=== PATIENT | male | born 1950 | race Caucasian/White ===

== ENCOUNTER 2020-01-31 08:01 | Outpatient (REF) | payer MEDICARE, SELFPAY | END 2020-01-31 08:02 | disposition home or self-care (01) | LOC: HO.LAB 08:01 | PROVIDERS: Visit Provider Internal Medicine | DX: Z20.828 Contact with and (suspected) exposure to other viral communicable diseases (principal) | CPT/HCPCS: C9803; U0003 ==

== ENCOUNTER 2021-02-22 06:15 | Outpatient (REF) | payer MEDICARE, SELFPAY ==
[2021-02-22 06:29] LABS: MANUAL DIFF FLAG NO
[2021-02-22 06:40] LABS: Basophils Percent Auto 0.6 % (0-2); Eosinophils Absolute Auto 0.1 X10*3/uL (0.0-0.4); Eosinophils Percent Auto 1.2 % (0-4); Hemoglobin 15.6 g/dl (14.0-18.0); Imm Gran Abs Auto 0.01 X10*3/uL (0.00-0.03); Imm Gran Pct Auto 0.2 % (0.0-0.4); Lymphocytes Absolute Auto 1.2 X10*3/uL (1.2-4.9); Lymphocytes Percent Auto 23.8 % (20-40); Mean Corpuscular HGB Conc 33.2 g/dl (31.0-36.0); Mean Corpuscular Hemoglobin 30.4 pg (27.0-33.0); Mean Corpuscular Volume 91.4 fL (80.0-98.0); Mean Platelet Volume 11.4 fL (9.4-12.4); Monocytes Absolute Auto 0.5 X10*3/uL (0.1-1.2); Neutrophils Absolute Auto 3.3 x10*3/uL (2.0-8.3); Neutrophils Percent Auto 65.2 % (45-73); Platelet Count 154 X10*3/uL (160-400); Red Blood Count 5.14 X10*6/uL (4.60-5.80); Red Cell Distribution Width 12.9 % (11.0-16.0)
[2021-02-22 06:57] LABS: Alanine Aminotransferase 30 U/L (0-40); Albumin Level 4.4 g/dL (3.5-5.0); Alkaline Phosphatase 77 U/L (39-117); Anion Gap 12 (12-20); Aspartate Amino Transferase 22 U/L (5-37); Bilirubin Total 0.9 mg/dL (0.0-1.0); Blood Urea Nitrogen 18 mg/dL (9-16); Calcium 10.4 mg/dL (8.4-10.2); Carbon Dioxide 29 mmol/L (22-29); Chloride 101 mmol/L (96-108); Cholesterol 179 mg/dL; Estimated Glomerular Filt Rate > 60; Glucose Fasting 145 mg/dL (60-99); HDL Cholesterol 33 mg/dL; LDL Cholesterol Calculated 96 mg/dl; Potassium 3.9 mmol/L (3.3-5.1); Sodium 138 mmol/L (135-145); Total Protein 7.3 g/dL (6.5-8.0); Triglycerides 253 mg/dL
[2021-02-22 07:36] LABS: Prostate Specific Antigen 4.75 ng/mL (<0.05-4.0)
== END 2021-02-22 06:16 | disposition home or self-care (01) ==
LOC: HO.LAB 06:15
PROVIDERS: Nurse Practitioner Family; Visit Provider Internal Medicine
DX: Z00.00 Encounter for general adult medical examination without abnormal findings (principal); Z12.5 Encounter for screening for malignant neoplasm of prostate; E11.9 Type 2 diabetes mellitus without complications
CPT/HCPCS: 36415; 80053; 80061; 84153; 85025

== ENCOUNTER 2021-07-26 06:06 | Outpatient (REF) | payer MEDICARE, SELFPAY ==
[2021-07-26 07:44] LABS: Estimated Average Glucose 117 mg/dL; Hemoglobin A1c % 5.7 %
[2021-07-26 07:57] LABS: Cholesterol 192 mg/dL; Glucose Fasting 131 mg/dL (60-99); HDL Cholesterol 36 mg/dL; LDL Cholesterol Calculated 129 mg/dl; Triglycerides 139 mg/dL
[2021-07-26 08:20] LABS: Prostate Specific Antigen Scr 5.84 ng/mL (<0.05-4.0)
== END 2021-07-26 06:07 | disposition home or self-care (01) ==
LOC: HO.LAB 06:06
PROVIDERS: PCP Internal Medicine; Visit Provider Internal Medicine
DX: Z00.00 Encounter for general adult medical examination without abnormal findings (principal); Z12.5 Encounter for screening for malignant neoplasm of prostate; E11.65 Type 2 diabetes mellitus with hyperglycemia
CPT/HCPCS: 36415; 80061; 82947; 83036; 84153

== ENCOUNTER → 2021-11-28 11:35 | Outpatient (BNVA) | payer MEDICARE, SELFPAY | PROVIDERS: PCP Internal Medicine; Visit Provider Urology | DX: R97.20 Elevated prostate specific antigen [PSA] (principal); R35.0 Frequency of micturition | CPT/HCPCS: Q3014 ==

== ENCOUNTER 2022-03-17 06:53 | Outpatient (REF) | payer MEDICARE, SELFPAY ==
[2022-03-17 07:12] LABS: MANUAL DIFF FLAG NO
[2022-03-17 08:27] LABS: Basophils Percent Auto 0.4 % (0-2); Eosinophils Absolute Auto 0.1 X10*3/uL (0.0-0.4); Eosinophils Percent Auto 2.2 % (0-4); Hematocrit 44.9 % (42.0-52.0); Hemoglobin 15.2 g/dl (14.0-18.0); Imm Gran Abs Auto 0.03 X10*3/uL (0.00-0.03); Imm Gran Pct Auto 0.5 % (0.0-0.4); Lymphocytes Absolute Auto 1.2 X10*3/uL (1.2-4.9); Mean Corpuscular HGB Conc 33.9 g/dl (31.0-36.0); Mean Corpuscular Hemoglobin 31.5 pg (27.0-33.0); Mean Corpuscular Volume 93.2 fL (80.0-98.0); Mean Platelet Volume 11.7 fL (9.4-12.4); Monocytes Absolute Auto 0.6 X10*3/uL (0.1-1.2); Neutrophils Absolute Auto 3.6 x10*3/uL (2.0-8.3); Neutrophils Percent Auto 64.9 % (45-73); Platelet Count 157 X10*3/uL (160-400); Red Blood Count 4.82 X10*6/uL (4.60-5.80); Red Cell Distribution Width 13.3 % (11.0-16.0); White Blood Count 5.5 X10*3/uL (4.8-10.8)
[2022-03-17 08:53] LABS: Alanine Aminotransferase 26 U/L (0-40); Albumin Level 4.3 g/dL (3.5-5.0); Alkaline Phosphatase 73 U/L (39-117); Anion Gap 13 (12-20); Aspartate Amino Transferase 15 U/L (5-37); Bilirubin Total 0.9 mg/dL (0.0-1.0); Blood Urea Nitrogen 22 mg/dL (9-16); Carbon Dioxide 28 mmol/L (22-29); Chloride 102 mmol/L (96-108); Cholesterol 186 mg/dL; Estimated Glomerular Filt Rate > 60; Glucose Fasting 137 mg/dL (60-99); HDL Cholesterol 32 mg/dL; LDL Cholesterol Calculated 111 mg/dl; Potassium 4.1 mmol/L (3.3-5.1); Sodium 139 mmol/L (135-145); Total Protein 6.9 g/dL (6.5-8.0); Triglycerides 217 mg/dL
[2022-03-17 08:56] LABS: PSA,Total (Free>4and<10) 2.96 ng/mL (0.00-4.00); Thyroid Stimulating Hormone 2.18 uIU/mL (0.32-4.0)
== END 2022-03-17 06:54 | disposition home or self-care (01) ==
LOC: HO.LAB 06:53
PROVIDERS: Absent Provider Urology; PCP Internal Medicine; Visit Provider Internal Medicine
DX: Z12.5 Encounter for screening for malignant neoplasm of prostate (principal); Z13.0 Encounter for screening for diseases of the blood and blood-forming organs and certain disorders involving the immune mechanism; R97.20 Elevated prostate specific antigen [PSA]; I10 Essential (primary) hypertension; E78.5 Hyperlipidemia, unspecified; E03.9 Hypothyroidism, unspecified
CPT/HCPCS: 36415; 80053; 80061; 84153; 84443; 85025

== ENCOUNTER → 2022-03-26 08:46 | Outpatient (BNVA) | payer MEDICARE, SELFPAY | PROVIDERS: PCP Internal Medicine; Visit Provider Urology | DX: R97.20 Elevated prostate specific antigen [PSA] (principal); R35.0 Frequency of micturition; R39.12 Poor urinary stream | CPT/HCPCS: Q3014 ==

== ENCOUNTER 2022-09-15 08:07 | Outpatient (REF) | payer MEDICARE, SELFPAY ==
[2022-09-15 10:01] LABS: PSA,Total (Free>4and<10) 2.49 ng/mL (0.00-4.00)
== END 2022-09-15 08:08 | disposition home or self-care (01) ==
LOC: HO.LAB 08:07
PROVIDERS: PCP Internal Medicine; Visit Provider Urology
DX: Z12.5 Encounter for screening for malignant neoplasm of prostate (principal); R97.20 Elevated prostate specific antigen [PSA]
CPT/HCPCS: 36415; 84153

== ENCOUNTER 2022-09-23 11:46 | Outpatient (AMB) | payer MEDICARE, SELFPAY ==
--- NOTE | 2022-09-23 11:48 | MHC.OFFVIS ---
Intake Intake Visit Reasons: 6M PSA(set) Intake Note: Patient is present for Follow Up PSA/PVR Urology Med: Doxazosin, Finasteride Antibiotic Allergy: None Blood Thinner: None PVR: 28ml Allergies No Known Allergies Allergy (Verified 09/23/22 11:48) HPI HPI Comments History of Present Illness Details Marc is a pleasant male. He is a patient of Dr. Tristan. He seen for the following urologic conditions - elevated PSA - lower urinary tract symptoms Good response to finasteride PSA remains low Discussed current management of his who has progressive dementia with recent fall and prolonged hospital stay Regaining muscle mass is of utmost importance. She should be reviewed for osteoporosis. Elevated PSA Slowly rising PSA PSA - 06/20 4.8, 07/21 5.9, 03/24 2.9, 09/21 2.5 Current symptoms with mild weakness of stream, feeling of relatively good emptying SHEILA 2+ Continue finasteride PFSH Medical History Hypertension Screening for diabetes mellitus Screening for hyperlipidemia Screening for prostate cancer Skin lesion Surgical History History of colonoscopy History of left knee surgery History of right knee surgery Family History Father Stroke Mother Breast cancer Social History Housing: House Alcohol intake: current Alcohol intake frequency: a few times a month Alcohol type: beer Patient Tobacco Use Status: Never used Tobacco e-Cigarette/Vaping Use: Never Used Second Hand Smoke Exposure: No service: No Current occupational status: retired Cognitive needs: No Hearing needs: No Vision needs: No Review of Systems Const Denies chills and Denies fever(s) Card Reports no additional complaints and Denies syncope Resp Denies cough GI Denies abdominal pain and Denies heartburn Reports as per HPI and Denies change in libido Neuro Denies syncope Psych Denies change in libido Endo Denies change in libido Physical Exam Const General: cooperative, healthy appearing, comfortable and no acute distress Orientation/consciousness: patient oriented x3 HEENT Face and sinus: Yes normal facial exam Mouth: moist mucous membranes Neck Neck: Yes normal visual inspection, Yes full ROM and Yes trachea midline Chest Chest palpation & inspection: normal inspection of the chest Resp Effort & Inspection: normal respiratory effort, able to speak in complete sentences and no respiratory distress GI Inspection: Yes normal to inspection Back/Spine/Pelvis Cervical Spine: normal cervical lordosis Thoracic/Lumbar Spine: thoracic and lumbar spine normal to inspection Skin General skin exam: no rashes or lesions noted Neuro General: patient oriented x3, gait normal, tone normal and moves all extremities Extrem General: Yes normal to inspection and Yes capillary refill normal Office Procedures Post Void Residual Post Residual Void Post Void Residual (PVR): 28 43633-Nrua Void Residual by ultrasound Results AMB Urinalysis, Automated UA Leukoctes 0 Ritesh/uL Last Edit by LAXMI Blank on 09/23/22 11:53 UA Nitrite Negative Last Edit by Mesha Calderon A on 09/23/22 11:53 UA Urobilinogen 1 mg/dL Last Edit by Mesha Calderon A on 09/23/22 11:53 UA Protein 0 mg/dL Last Edit by Mesha Calderon [facility] on 09/23/22 11:53 UA pH 6.5 Last Edit by Mesha Calderon [facility] on 09/23/22 11:53 UA Blood 0 Dwight/uL Last Edit by Mesha Calderon [facility] on 09/23/22 11:53 UA Specific [place] 1.015 Last Edit by Mesha Calderon A on 09/23/22 11:53 UA Ketone Negative Last Edit by Mesha Calderon [facility] on 09/23/22 11:53 UA Bilirubin 0 mg/dL Last Edit by Mesha Calderon A on 09/23/22 11:53 UA Glucose 0 mg/dL Last Edit by Mesha Calderon [facility] on 09/23/22 11:53 Results Reviewed Results Reviewed: Laboratory Last Values Urine pH (Auto) 6.5 09/23/22 11:49 Specific [place] (Auto) 1.015 09/23/22 11:49 Urine Protein (Auto) 0 mg/dL 09/23/22 11:49 Glucose (UA)(Auto) 0 mg/dL 09/23/22 11:49 Urine Ketones (Auto) Negative 09/23/22 11:49 Urine Blood (Auto) 0 Dwight/uL 09/23/22 11:49 Urine Nitrite (Auto) Negative 09/23/22 11:49 Urine Bilirubin (Auto) 0 mg/dL 09/23/22 11:49 Urine Urobilinogen (Auto) 1 mg/dL 09/23/22 11:49 Leukocyte Esterase (Auto) 0 Ritesh/uL 09/23/22 11:49 Assessment & Plan Assessment & Plan (1) Urinary frequency: Code(s): R35.0 - Frequency of micturition (2) Elevated PSA: Code(s): R97.20 - Elevated prostate specific antigen [PSA] Plan Twelve month follow-up Orders: Orders Prostate Specific Antigen 364 Days N40.0 - Benign prostatic hyperplasia without lower urinary tract symptoms AMB Urinalysis Automated Today Z13.9 - Encounter for screening, unspecified AMB Post Void Residual by ultrasound Today N40.0 - Benign prostatic hyperplasia without lower urinary tract symptoms Patient Instructions: Imaging studies, laboratory and physical exam results were discussed and reviewed in detail. No major barriers to patient understanding were identified. An opportunity to ask questions regarding the treatment plan was provided. All questions were answered. The patient expressed understanding and agreement with the above treatment plan. The patient is aware they should contact our office by phone for worsening of their current condition or the appearance of new urologic symptoms. Compliance is encouraged with any medications and followup testing that is ordered. It is a privilege to participate in the urologic care of your patient. If you have any questions or concerns regarding treatment for the above conditions, or other urologic issues, please do not hesitate to contact me. The office telephone contact is [phone]. This note is constructed using voice recognition software. While every effort has been made to ensure accuracy cut off machine operator errors may have been included. Yours sincerely, Dr Dinh Birmingham MD, [facility] - Urology Providers of Expert, Compassionate Care for the Genitourinary System Coding Level of Care Code Est Pt Level 3 (22727) Diagnoses Urinary frequency R35.0 Elevated PSA R97.20 CPT Codes Post Residual Void - PVR CPT Code: 64465-Fryo Void Residual by ultrasound ([id number])
== END 2022-09-23 12:34 | disposition home or self-care (01) ==
PROVIDERS: Visit Provider Urology
DX: R35.0 Frequency of micturition (principal); R97.20 Elevated prostate specific antigen [PSA]
CPT/HCPCS: 99213

== ENCOUNTER → 2022-09-23 11:46 | Outpatient (BNVA) | payer MEDICARE, SELFPAY | PROVIDERS: Visit Provider Urology | DX: N40.1 Benign prostatic hyperplasia with lower urinary tract symptoms (principal); N13.8 Other obstructive and reflux uropathy; R97.20 Elevated prostate specific antigen [PSA]; R39.12 Poor urinary stream; R35.0 Frequency of micturition; Z79.899 Other long term (current) drug therapy | CPT/HCPCS: 51798; 99212 ==

== ENCOUNTER 2022-11-14 11:18 | Outpatient (AMB) | payer MEDICARE, SELFPAY ==
[2022-11-14 11:20] VITALS: BP 116/54; PULSE 64; O2SAT 97; BMI 27.5
--- NOTE | 2022-11-14 11:20 | MHC.PC.OV ---
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 Accompanied by: Self / Same As Patient Allergies No Known Allergies Allergy (Verified 11/14/22 11:21) Medication List - Last Reconciled 11/14/22 by Jak Aranda MD atenolol 100 mg PO DAILY clotrimazole-betamethasone 1-0.05 % 1 appl topical BID 2 weeks doxazosin 4 mg PO BEDTIME 90 days finasteride 5 mg PO DAILY 90 days fluoxetine 20 mg PO QAM triamterene-hydrochlorothiazid 75-50 mg 1 tab PO DAILY Tobacco use date assessed: 04/04/22 Fall risk assessment: No Falls in past year Last assessed Fall Risk: 11/14/22 Dental Screening Dental Screen Date: 11/14/22 Did you have a dental visit in the last 12 months?: No Did you have a dental problem in the last 6 months where you did not have access to dental care?: No Was dental information given to patient?: Patient has dentist HPI 3M Follow up HPI Details HTN BPH and depression on rx; doing well and compliant [facility] Medical History Screening for prostate cancer Screening for hyperlipidemia Screening for diabetes mellitus Skin lesion Hypertension Surgical History History of colonoscopy History of right knee surgery History of left knee surgery Family History Father Stroke Mother Breast cancer Social History Housing: House Alcohol intake: current Alcohol intake frequency: a few times a month Alcohol type: beer Patient Tobacco Use Status: Never used Tobacco e-Cigarette/Vaping Use: Never Used Second Hand Smoke Exposure: No service: No Current occupational status: retired Cognitive needs: No Hearing needs: No Vision needs: No Questionnaire PHQ-9 Over the last 2 weeks, how often have you been bothered by any of the following problems? 1. Little interest or pleasure in doing things: not at all 2. Feeling down, depressed, or hopeless: not at all 3. Trouble falling or staying asleep, or sleeping too much: not at all 4. Feeling tired or having little energy: not at all 5. Poor appetite or overeating: not at all 6. Feeling bad about yourself - or that you are a failure or have let yourself or your family down: not at all 7. Trouble concentrating on things, such as reading the newspaper or watching television: not at all 8. Moving or speaking so slowly that other people could have noticed. Or the opposite - being so fidgety or restless that you have been moving around a lot more than usual: not at all 9. Thoughts that you would be better off or of hurting yourself in some way: not at all Total score: 0 Depression Screening Interpretation: Negative Source: Developed by Drs. Gordo Anedrson, Rosalinda Castellanos, Omar Pitt and colleagues, with an educational danny from [employer]. Thrive Questionnaire Date Thrive assessed: 04/04/22 AUDIT C Alcohol Use Questionnaire (AUDIT-C) 1. How often do you have a drink containing alcohol?: 2-4 times a month 2. How many drinks containing alcohol do you have on a typical day when you are drinking?: 1 or 2 Total Score: 2 Score Reviewed/Action Taken: Yes DEEDEE-7 AMB Questionnaire DEEDEE-7 Date DEEDEE - 7 assessed: 04/04/22 Source: Developed by Drs. Gordo Anderson, Rosalinda Castellanos, Omar Pitt and colleagues, with an educational danny from [employer]. Review of Systems Const Denies chills, Denies headache(s) and Denies weight loss ENT Denies headache(s) Card Denies chest pain, Denies syncope, Denies irregular heart rhythm and Denies dyspnea Resp Denies chest congestion, Denies cough and Denies dyspnea GI Denies abdominal pain, Denies change in stool character, Denies nausea and Denies vomiting Musc Denies deformity and Denies joint swelling Neuro Denies syncope and Denies headache(s) Physical exam (Primary Care) Vital Signs: Last Vital Signs Pulse 64 11/14/22 11:20 BP 116/54 L 11/14/22 11:20 Pulse Ox 97 11/14/22 11:20 Oxygen Delivery Method Room Air 11/14/22 11:20 BMI result Body Mass Index 27.5 Tobacco/Smoking Status: Tobacco use Status Tobacco use date assessed 04/04/22 11/14/22 11:25 Patient Tobacco Use Status Never used Tobacco 11/14/22 11:25 e-Cigarette/Vaping Use Never Used 11/14/22 11:25 PHQ-9: PHQ-9 Score PHQ-9: Total score 0 11/14/22 11:25 Depression Screening Interpretation: Negative Thrive Assessment: Date of Thrive Assessment Date Thrive assessed 04/04/22 11/14/22 11:25 Const General: cooperative, comfortable, no acute distress and alert Neck Neck: Yes no lymphadenopathy Thyroid: Thyroid normal Resp Effort & Inspection: normal respiratory effort Auscultation: clear to auscultation bilaterally Percussion: percussion normal Cardio Jugular venous distension: no JVD Palpation: normal PMI Rate: regular rate Rhythm: regular rhythm Heart sounds: S1 normal heart sound present and S2 normal heart sound present GI Inspection: Yes normal to inspection Palpation (GI): No hepatosplenomegaly present Skin General skin exam: no rashes or lesions noted Extrem General: Yes no clubbing, cyanosis or edema Assessment and Plan Assessment & Plan (1) Hypertension: Code(s): I10 - Essential (primary) hypertension Plan: stable; same rx (2) Anxiety: Code(s): F41.9 - Anxiety disorder, unspecified Plan: stable; same rx (3) BPH (benign prostatic hyperplasia): Code(s): N40.0 - Benign prostatic hyperplasia without lower urinary tract symptoms Plan: stable; same rx Coding Level of Care Code Est Pt Level 4 (51306) Diagnoses Hypertension I10 Anxiety F41.9 BPH (benign prostatic hyperplasia) N40.0
== END 2022-11-14 11:38 | disposition home or self-care (01) ==
PROVIDERS: PCP Internal Medicine; Visit Provider Internal Medicine
DX: I10 Essential (primary) hypertension (principal); F41.9 Anxiety disorder, unspecified; N40.0 Benign prostatic hyperplasia without lower urinary tract symptoms
CPT/HCPCS: 99214

== ENCOUNTER 2023-03-16 08:23 | Outpatient (AMB) | payer MEDICARE, SELFPAY ==
[2023-03-16 08:27] VITALS: BP 118/64; PULSE 55; O2SAT 99; BMI 27.5
--- NOTE | 2023-03-16 08:27 | MHC.PC.OV ---
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 Required: No Manager Strategic Sourcing: Not Required per policy Accompanied by: Self / Same As Patient Allergies No Known Allergies Allergy (Verified 03/16/23 08:28) Medication List - Last Reconciled 03/16/23 by Jak Aranda MD atenolol 100 mg PO DAILY clotrimazole-betamethasone 1-0.05 % 1 appl topical BID 2 weeks doxazosin 4 mg PO BEDTIME 90 days finasteride 5 mg PO DAILY 90 days fluoxetine 20 mg PO QAM triamterene-hydrochlorothiazid 75-50 mg 1 tab PO DAILY Tobacco use date assessed: 03/16/23 Fall risk assessment: No Falls in past year Last assessed Fall Risk: 03/16/23 Dental Screening Dental Screen Date: 03/16/23 Did you have a dental visit in the last 12 months?: No Did you have a dental problem in the last 6 months where you did not have access to dental care?: No Was dental information given to patient?: Patient has dentist HPI [facility] f[facility]u HPI Details HTN BPH and depression on rx; doing well and compliant [facility] Medical History Screening for prostate cancer Screening for hyperlipidemia Screening for diabetes mellitus Skin lesion Hypertension Surgical History History of colonoscopy History of right knee surgery History of left knee surgery Family History Father Stroke Mother Breast cancer Social History Housing: House Alcohol intake: current Alcohol intake frequency: a few times a month Alcohol type: beer Patient Tobacco Use Status: Never used Tobacco e-Cigarette/Vaping Use: Never Used Second Hand Smoke Exposure: No service: No Current occupational status: retired Cognitive needs: No Hearing needs: No Vision needs: No Questionnaire PHQ-9 Over the last 2 weeks, how often have you been bothered by any of the following problems? 1. Little interest or pleasure in doing things: not at all 2. Feeling down, depressed, or hopeless: not at all 3. Trouble falling or staying asleep, or sleeping too much: not at all 4. Feeling tired or having little energy: not at all 5. Poor appetite or overeating: not at all 6. Feeling bad about yourself - or that you are a failure or have let yourself or your family down: not at all 7. Trouble concentrating on things, such as reading the newspaper or watching television: not at all 8. Moving or speaking so slowly that other people could have noticed. Or the opposite - being so fidgety or restless that you have been moving around a lot more than usual: not at all 9. Thoughts that you would be better off or of hurting yourself in some way: not at all Total score: 0 Depression Screening Interpretation: Negative Depression Screening Done: Yes 37029 - PHQ-9 Billing: Yes Source: Developed by Drs. Gordo Anderson, Rosalinda Castellanos, Omar Pitt and colleagues, with an educational danny from [employer]. Thrive Questionnaire Date Thrive assessed: 03/16/23 I am a: Patient What is your living situation today?: I have a steady place to live Within the past 12 months, did the food you bought not last and you didn't have the money to get more?: Never true Within the past 12 months, did you worry whether your food would run out before you got money to buy more?: Never true Do you have trouble paying for medicines?: No Do you have trouble getting transportation to medical appointments?: No Do you have trouble paying your heating and electricity bill?: No Do you have trouble taking care of your child, family member or friend?: No Do you have trouble with day-to-day activities such as bathing, preparing meals, shopping, managing finances, etc.?: No Are you currently unemployed and looking for a job?: No Are you interested in more education?: No Please select the resources that you would like help with: None AUDIT C Alcohol Use Questionnaire (AUDIT-C) 1. How often do you have a drink containing alcohol?: 2-4 times a month 2. How many drinks containing alcohol do you have on a typical day when you are drinking?: 1 or 2 Total Score: 2 Score Reviewed/Action Taken: Yes DEEDEE-7 AMB Questionnaire DEEDEE-7 Date DEEDEE - 7 assessed: 03/16/23 Feeling nervous, anxious, or on edge: 0 = Not at all Not being able to stop or control worryin = Not at all Worrying too much about different things: 0 = Not at all Trouble relaxin = Not at all Being so restless that it is hard to sit still: 0 = Not at all Becoming easily annoyed or irritable: 0 = Not at all Feeling afraid as if something awful might happen: 0 = Not at all Total DEEDEE-7 score (0-4 normal; 5-9 mild; 10-14 moderate; 15-21 severe): 0 Source: Developed by Drs. Gordo Anderson, Rosalinda Castellanos, Omar Pitt and colleagues, with an educational danny from [employer]. DEEDEE-7 Assessment Billing DEEDEE-7 Assessment Tool: DEEDEE-7 Assessment 55954 Review of Systems Const Denies chills, Denies headache(s) and Denies weight loss ENT Denies headache(s) Card Denies chest pain, Denies syncope, Denies irregular heart rhythm and Denies dyspnea Resp Denies chest congestion, Denies cough and Denies dyspnea GI Denies abdominal pain, Denies change in stool character, Denies nausea and Denies vomiting Musc Denies deformity and Denies joint swelling Neuro Denies syncope and Denies headache(s) Physical exam (Primary Care) Vital Signs: Last Vital Signs Pulse 55 03/16/23 08:27 BP 118/64 03/16/23 08:27 Pulse Ox 99 03/16/23 08:27 Oxygen Delivery Method Room Air 03/16/23 08:27 BMI result Body Mass Index 27.5 Tobacco/Smoking Status: Tobacco use Status Tobacco use date assessed 03/16/23 03/16/23 08:33 Patient Tobacco Use Status Never used Tobacco 03/16/23 08:33 e-Cigarette/Vaping Use Never Used 03/16/23 08:33 PHQ-9: PHQ-9 Score PHQ-9: Total score 0 03/16/23 08:59 Depression Screening Interpretation: Negative Thrive Assessment: Date of Thrive Assessment Date Thrive assessed 03/16/23 03/16/23 08:33 Const General: cooperative, comfortable, no acute distress and alert Neck Neck: Yes no lymphadenopathy Thyroid: Thyroid normal Resp Effort & Inspection: normal respiratory effort Auscultation: clear to auscultation bilaterally Percussion: percussion normal Cardio Jugular venous distension: no JVD Palpation: normal PMI Rate: regular rate Rhythm: regular rhythm Heart sounds: S1 normal heart sound present and S2 normal heart sound present GI Inspection: Yes normal to inspection Palpation (GI): No hepatosplenomegaly present Skin General skin exam: no rashes or lesions noted Extrem General: Yes no clubbing, cyanosis or edema Office Procedures Flu Questionnaire Does the patient have a severe egg allergy?: No Does the patient have severe life threatening allergies?: No Does the patient have a fever or illness today?: No Has the patient ever had Guillain-[place] Syndrome?: No Has the patient ever had any past reaction to a flu shot?: No Immunizations flu vacc [id number] 6mos up(PF) 60 mcg(15 mcgx4)/0.5 mL IM syringe Performing Provider: Jak Aranda MD Performing Location: [facility] Administered by: LAXMI Eddy on 03/16/23 08:59 Dose Route Admin Location Dispensed Lot Number Expiration Date [employer] 0.5 mL IM Left Deltoid 0.5 mL [id number] 08/30/23 17209-803-25 [employer] VIS Given Date VIS Provided VIS Publication Date 03/16/23 Single Vaccine 20 Eligibility Eligibility Date Funding Source Not [facility] Eligible 03/16/23 Private Assessment and Plan Assessment & Plan (1) BPH (benign prostatic hyperplasia): Code(s): N40.0 - Benign prostatic hyperplasia without lower urinary tract symptoms Plan: stable; same rx (2) Hypertension: Code(s): I10 - Essential (primary) hypertension Plan: stable; same rx; do labs (3) Anxiety: Code(s): F41.9 - Anxiety disorder, unspecified Plan: stable; same rx Orders: Orders Lipid Panel Today E78.5 - Hyperlipidemia, unspecified Thyroid Stimulating Hormone Today E03.9 - Hypothyroidism, unspecified Comprehensive [place]. Panel Fast Today N28.9 - Disorder of kidney and ureter, unspecified Influenza [id number] Immunization Today Z23 - Encounter for immunization Complete Blood Count Auto Diff Today D64.9 - Anemia, unspecified Coding Level of Care Code Est Pt Level 4 (21500) Diagnoses BPH (benign prostatic hyperplasia) N40.0 Hypertension I10 Anxiety F41.9 Additional Codes DEEDEE-7 Assessment Billing - DEEDEE-7 Assessment Tool: DEEDEE-7 Assessment 83264 ([id number])
== END 2023-03-16 09:02 | disposition home or self-care (01) ==
PROVIDERS: PCP Internal Medicine; Visit Provider Internal Medicine
DX: N40.0 Benign prostatic hyperplasia without lower urinary tract symptoms (principal); I10 Essential (primary) hypertension; F41.9 Anxiety disorder, unspecified; Z23 Encounter for immunization
CPT/HCPCS: 90471; 90686; 99214

== ENCOUNTER 2023-07-22 10:57 | Outpatient (AMB) | payer MEDICARE, SELFPAY ==
[2023-07-22 10:59] VITALS: BP 118/60; PULSE 60; O2SAT 98; BMI 27.2
--- NOTE | 2023-07-22 10:59 | A.OFFPC_ITS ---
Vital Signs 07/22/23 10:59 Height 6 ft 3 in Weight 218 lb BMI 27.2 BP 118/60 Blood Pressure Location Lt brachial Position Sitting Pulse 60 Pulse Source Pulse Oximeter Pulse Oximetry (%) 98 Oxygen Delivery Method Room Air Intake Visit Reasons: 4mth f/u Facilities Clerk Required: No Travel Registered Nurse Nicu: Present Accompanied by: Spouse Allergies No Known Allergies Allergy (Verified 07/22/23 11:00) Medication List - Last Reconciled 07/22/23 by Jak Aranda MD atenolol 100 mg PO DAILY clotrimazole-betamethasone 1-0.05 % 1 appl topical BID 2 weeks doxazosin 4 mg PO BEDTIME 90 days finasteride 5 mg PO DAILY 90 days fluoxetine 20 mg PO QAM triamterene-hydrochlorothiazid 75-50 mg 1 tab PO DAILY Tobacco use date assessed: 03/16/23 Fall risk assessment: No Falls in past year Last assessed Fall Risk: 07/22/23 Dental Screening Dental Screen Date: 03/16/23 HPI 4mth f/u HPI Details HTN on Rx; doing well and compliant [facility] Medical History Screening for prostate cancer Screening for hyperlipidemia Screening for diabetes mellitus Skin lesion Hypertension Surgical History History of colonoscopy History of right knee surgery History of left knee surgery Family History Father Stroke Mother Breast cancer Social History Housing: House Alcohol intake: current Alcohol intake frequency: a few times a month Alcohol type: beer Patient Tobacco Use Status: Never used Tobacco e-Cigarette/Vaping Use: Never Used Second Hand Smoke Exposure: No service: No Current occupational status: retired Cognitive needs: No Hearing needs: No Vision needs: No Questionnaire Thrive Questionnaire Date Thrive assessed: 03/16/23 DEEDEE-7 AMB Questionnaire DEEDEE-7 Date DEEDEE - 7 assessed: 03/16/23 Source: Developed by Drs. Gordo Anderson, Rosalinda Castellanos, Omar Pitt and colleagues, with an educational danny from [employer]. Review of Systems Const Denies chills, Denies headache(s) and Denies weight loss ENT Denies headache(s) Card Denies chest pain, Denies syncope, Denies irregular heart rhythm and Denies dyspnea Resp Denies chest congestion, Denies cough and Denies dyspnea GI Denies abdominal pain, Denies change in stool character, Denies nausea and Denies vomiting Musc Denies deformity and Denies joint swelling Neuro Denies syncope and Denies headache(s) Physical exam (Primary Care) Vital Signs: Last Vital Signs Pulse 60 07/22/23 10:59 BP 118/60 07/22/23 10:59 Pulse Ox 98 07/22/23 10:59 Oxygen Delivery Method Room Air 07/22/23 10:59 BMI result Body Mass Index 27.2 Tobacco/Smoking Status: Tobacco use Status Tobacco use date assessed 03/16/23 07/22/23 11:00 Patient Tobacco Use Status Never used Tobacco 07/22/23 11:00 e-Cigarette/Vaping Use Never Used 07/22/23 11:00 Thrive Assessment: Date of Thrive Assessment Date Thrive assessed 03/16/23 07/22/23 11:00 Const General: cooperative, comfortable, no acute distress and alert Neck Neck: Yes no lymphadenopathy Thyroid: Thyroid normal Resp Effort & Inspection: normal respiratory effort Auscultation: clear to auscultation bilaterally Percussion: percussion normal Cardio Jugular venous distension: no JVD Palpation: normal PMI Rate: regular rate Rhythm: regular rhythm Heart sounds: S1 normal heart sound present and S2 normal heart sound present GI Inspection: Yes normal to inspection Palpation (GI): No hepatosplenomegaly present Skin General skin exam: no rashes or lesions noted Extrem General: Yes no clubbing, cyanosis or edema Assessment and Plan Assessment & Plan (1) Hypertension: Code(s): I10 - Essential (primary) hypertension Plan: stable; samerx Coding Level of Care Code Est Pt Level 3 (61020) Diagnoses Hypertension I10
== END 2023-07-22 11:18 | disposition home or self-care (01) ==
PROVIDERS: PCP Internal Medicine; Visit Provider Internal Medicine
DX: I10 Essential (primary) hypertension (principal)
CPT/HCPCS: 99213

== ENCOUNTER 2023-08-19 07:19 | Outpatient (REF) | payer MEDICARE, SELFPAY ==
[2023-08-19 07:32] LABS: MANUAL DIFF FLAG NO
[2023-08-19 08:02] LABS: Basophils Percent Auto 0.5 % (0-2); Eosinophils Absolute Auto 0.1 X10*3/uL (0.0-0.4); Eosinophils Percent Auto 1.7 % (0-4); Hemoglobin 14.6 g/dl (14.0-18.0); Imm Gran Abs Auto 0.01 X10*3/uL (0.00-0.03); Imm Gran Pct Auto 0.2 % (0.0-0.4); Lymphocytes Absolute Auto 0.9 X10*3/uL (1.2-4.9); Lymphocytes Percent Auto 22.2 % (20-40); Mean Corpuscular HGB Conc 34.8 g/dl (31.0-36.0); Mean Corpuscular Hemoglobin 31.6 pg (27.0-33.0); Mean Corpuscular Volume 90.9 fL (80.0-98.0); Mean Platelet Volume 11.4 fL (9.4-12.4); Monocytes Absolute Auto 0.4 X10*3/uL (0.1-1.2); Monocytes Percent Auto 9.4 % (2-11); Neutrophils Absolute Auto 2.7 x10*3/uL (2.0-8.3); Platelet Count 119 X10*3/uL (160-400); Red Blood Count 4.62 X10*6/uL (4.60-5.80); White Blood Count 4.1 X10*3/uL (4.8-10.8)
[2023-08-19 08:53] LABS: Alanine Aminotransferase 31 U/L (0-40); Albumin Level 4.2 g/dL (3.5-5.0); Alkaline Phosphatase 60 U/L (39-117); Anion Gap 13 (12-20); Aspartate Amino Transferase 26 U/L (5-37); Bilirubin Total 1.1 mg/dL (0.0-1.0); Blood Urea Nitrogen 19 mg/dL (9-16); Carbon Dioxide 26 mmol/L (22-29); Chloride 103 mmol/L (96-108); Cholesterol 164 mg/dL (<200); Estimated Glomerular Filt Rate > 60; Glucose Fasting 126 mg/dL (60-99); HDL Cholesterol 34 mg/dL (>40); LDL Cholesterol Calculated 101 mg/dL (<100); Potassium 3.8 mmol/L (3.3-5.1); Sodium 138 mmol/L (135-145); Total Protein 6.9 g/dL (6.5-8.0); Triglycerides 148 mg/dL (<150)
[2023-08-19 08:57] LABS: Prostate Specific Antigen 3.66 ng/mL (<0.05-4.0)
[2023-08-19 09:09] LABS: Thyroid Stimulating Hormone 1.59 uIU/mL (0.32-4.0)
== END 2023-08-19 07:20 | disposition home or self-care (01) ==
LOC: HO.LAB 07:19
PROVIDERS: Absent Provider Internal Medicine; PCP Internal Medicine; Visit Provider Urology
DX: N40.0 Benign prostatic hyperplasia without lower urinary tract symptoms (principal); N28.9 Disorder of kidney and ureter, unspecified; D64.9 Anemia, unspecified; E78.5 Hyperlipidemia, unspecified; E03.9 Hypothyroidism, unspecified; Z12.5 Encounter for screening for malignant neoplasm of prostate
CPT/HCPCS: 36415; 80053; 80061; 84153; 84443; 85025

== ENCOUNTER 2023-09-23 09:17 | Outpatient (AMB) | payer MEDICARE, SELFPAY ==
--- NOTE | 2023-09-23 09:20 | MHC.OFFVIS ---
Intake Visit Reasons: 1Y Follow Up-PSA/PVR(set) Intake Note: Patient is present for 1Y Follow Up PSA/PVR Urology Med: Doxazosin, Finasteride Antibiotic Allergy: None Blood Thinner: None PVR: 28ml TODAY'S PVR:0ML'S Machine Stapler Required: No Allergies No Known Allergies Allergy (Verified 09/23/23 09:20) Medication List - Last Reconciled 09/23/23 by Dinh Birmingham MD atenolol 100 mg PO DAILY clotrimazole-betamethasone 1-0.05 % 1 appl topical BID 2 weeks doxazosin 4 mg PO BEDTIME 90 days finasteride 5 mg PO DAILY 90 days fluoxetine 20 mg PO QAM triamterene-hydrochlorothiazid 75-50 mg 1 tab PO DAILY HPI Comments Details: Marc is a pleasant male. He is a patient of Dr. Tristan. 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 Elevated PSA Slowly rising PSA PSA - 06/20 4.8, 07/21 5.9, 03/24 2.9, 09/21 2.5, 08/23 3.6 Current symptoms with mild weakness of stream, feeling of relatively good emptying SHEILA 2+ Continue finasteride [facility] Medical History Screening for prostate cancer Screening for hyperlipidemia Screening for diabetes mellitus Skin lesion Hypertension Surgical History History of colonoscopy History of right knee surgery History of left knee surgery Family History Father Stroke Mother Breast cancer Social History Housing: House Alcohol intake: current Alcohol intake frequency: a few times a month Alcohol type: beer Patient Tobacco Use Status: Never used Tobacco e-Cigarette/Vaping Use: Never Used Second Hand Smoke Exposure: No service: No Current occupational status: retired Cognitive needs: No Hearing needs: No Vision needs: No Review of Systems Const Denies chills and Denies fever(s) Card Reports no additional complaints and Denies syncope Resp Denies cough GI Denies abdominal pain and Denies heartburn Reports as per HPI and Denies change in libido Neuro Denies syncope Psych Denies change in libido Endo Denies change in libido Physical Exam Const General: cooperative, healthy appearing, comfortable and no acute distress Orientation/consciousness: patient oriented x3 HEENT Face and sinus: Yes normal facial exam Mouth: moist mucous membranes Neck Neck: Yes normal visual inspection, Yes full ROM and Yes trachea midline Chest Chest palpation & inspection: normal inspection of the chest Resp Effort & Inspection: normal respiratory effort, able to speak in complete sentences and no respiratory distress GI Inspection: Yes normal to inspection Back/Spine/Pelvis Cervical Spine: normal cervical lordosis Thoracic/Lumbar Spine: thoracic and lumbar spine normal to inspection Skin General skin exam: no rashes or lesions noted Neuro General: patient oriented x3, gait normal, tone normal and moves all extremities Extrem General: Yes normal to inspection and Yes capillary refill normal Office Procedures Post Void Residual Post Residual Void Post Void Residual (PVR): 0 40117-[id number] Void Residual by ultrasound Results AMB Urinalysis, Automated UA Leukoctes 0 Ritesh/uL Last Edit by JOHN Fernando on 09/23/23 09:37 UA Nitrite Negative Last Edit by JOHN Fernando on 09/23/23 09:37 UA Urobilinogen 0.2 mg/dL Last Edit by JOHN Fernando on 09/23/23 09:37 UA Protein 0 mg/dL Last Edit by JOHN Fernando on 09/23/23 09:37 UA pH 6.5 Last Edit by JOHN Fernando on 09/23/23 09:37 UA Blood 0 Dwight/uL Last Edit by JOHN Fernando on 09/23/23 09:37 UA Specific [place] 1.010 Last Edit by JOHN Fernando on 09/23/23 09:37 UA Ketone Negative Last Edit by JOHN Fernando on 09/23/23 09:37 UA Bilirubin 0 mg/dL Last Edit by JOHN Fernando on 09/23/23 09:37 UA Glucose 0 mg/dL Last Edit by JOHN Fernando on 09/23/23 09:37 Results Reviewed Results Reviewed: Laboratory Last Values Urine pH (Auto) 6.5 09/23/23 09:37 Specific [place] (Auto) 1.010 09/23/23 09:37 Urine Protein (Auto) 0 mg/dL 09/23/23 09:37 Glucose (UA)(Auto) 0 mg/dL 09/23/23 09:37 Urine Ketones (Auto) Negative 09/23/23 09:37 Urine Blood (Auto) 0 Dwight/uL 09/23/23 09:37 Urine Nitrite (Auto) Negative 09/23/23 09:37 Urine Bilirubin (Auto) 0 mg/dL 09/23/23 09:37 Urine Urobilinogen (Auto) 0.2 mg/dL 09/23/23 09:37 Leukocyte Esterase (Auto) 0 Ritesh/uL 09/23/23 09:37 Assessment & Plan Assessment & Plan (1) BPH (benign prostatic hyperplasia): Code(s): N40.0 - Benign prostatic hyperplasia without lower urinary tract symptoms Category: Medical (2) Urinary frequency: Code(s): R35.0 - Frequency of micturition Category: Medical Plan Six-month follow-up finasteride with ultrasound and PSA Orders: Orders US bladder 6 Months N40.0 - Benign prostatic hyperplasia without lower urinary tract symptoms, R39.12 - Poor urinary stream AMB Urinalysis Automated Today Z13.9 - Encounter for screening, unspecified Prostate Specific Antigen 6 Months N40.0 - Benign prostatic hyperplasia without lower urinary tract symptoms Medications: Refilled finasteride 5 mg PO DAILY 90 days 90 tabs 3RF R97.20 - Elevated prostate specific antigen [PSA] doxazosin 4 mg PO BEDTIME 90 days 90 tabs 1RF N40.0 - Benign prostatic hyperplasia without lower urinary tract symptoms Patient Instructions: Imaging studies, laboratory and physical exam results were discussed and reviewed in detail. No major barriers to patient understanding were identified. An opportunity to ask questions regarding the treatment plan was provided. All questions were answered. The patient expressed understanding and agreement with the above treatment plan. The patient is aware they should contact our office by phone for worsening of their current condition or the appearance of new urologic symptoms. Compliance is encouraged with any medications and followup testing that is ordered. It is a privilege to participate in the urologic care of your patient. If you have any questions or concerns regarding treatment for the above conditions, or other urologic issues, please do not hesitate to contact me. The office telephone contact is [phone]. This note is constructed using voice recognition software. While every effort has been made to ensure accuracy high school home economics teacher errors may have been included. Yours sincerely, Dr Dinh Birmingham MD, [facility] - Urology Providers of Expert, Compassionate Care for the Genitourinary System Coding Level of Care Code Est Pt Level 4 (94430) Diagnoses BPH (benign prostatic hyperplasia) N40.0 Urinary frequency R35.0 CPT Codes Post Residual Void - PVR CPT Code: 18650-Cajc Void Residual by ultrasound ([id number])
== END 2023-09-23 09:50 | disposition home or self-care (01) ==
PROVIDERS: PCP Internal Medicine; Visit Provider Urology
DX: N40.0 Benign prostatic hyperplasia without lower urinary tract symptoms (principal); R35.0 Frequency of micturition; Z13.9 Encounter for screening, unspecified
CPT/HCPCS: 99214

== ENCOUNTER → 2023-09-23 09:17 | Outpatient (BNVA) | payer MEDICARE, SELFPAY | PROVIDERS: PCP Internal Medicine; Visit Provider Urology | DX: N40.0 Benign prostatic hyperplasia without lower urinary tract symptoms (principal); R35.0 Frequency of micturition | CPT/HCPCS: 51798; 81003; 99212 ==

== ENCOUNTER 2023-11-26 11:25 | Outpatient (AMB) | payer MEDICARE, SELFPAY ==
--- NOTE | 2023-11-26 11:26 | MHC.PC.OV ---
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 Accompanied by: Spouse Allergies No Known Allergies Allergy (Verified 11/26/23 11:36) Medication List - Last Reconciled 11/26/23 by Jak Aranda MD atenolol 100 mg PO DAILY clotrimazole-betamethasone 1-0.05 % 1 appl topical BID 2 weeks doxazosin 4 mg PO BEDTIME 90 days finasteride 5 mg PO DAILY 90 days fluoxetine 20 mg PO QAM triamterene-hydrochlorothiazid 75-50 mg 1 tab PO DAILY Tobacco use date assessed: 03/16/23 Fall risk assessment: No Falls in past year Last assessed Fall Risk: 11/26/23 Dental Screening Dental Screen Date: 03/16/23 HPI 4 Month F/U HPI Details HTN on Rx; doing well; compliant [facility] Medical History Screening for prostate cancer Screening for hyperlipidemia Screening for diabetes mellitus Skin lesion Hypertension Surgical History History of colonoscopy History of right knee surgery History of left knee surgery Family History Father Stroke Mother Breast cancer Social History Housing: House Alcohol intake: current Alcohol intake frequency: a few times a month Alcohol type: beer Patient Tobacco Use Status: Never used Tobacco Tobacco use type: Cigarette e-Cigarette/Vaping Use: Never Used Second Hand Smoke Exposure: No service: No Current occupational status: retired Cognitive needs: No Hearing needs: No Vision needs: No Questionnaire PHQ-9 Over the last 2 weeks, how often have you been bothered by any of the following problems? 1. Little interest or pleasure in doing things: not at all 2. Feeling down, depressed, or hopeless: not at all 3. Trouble falling or staying asleep, or sleeping too much: not at all 4. Feeling tired or having little energy: not at all 5. Poor appetite or overeating: not at all 6. Feeling bad about yourself - or that you are a failure or have let yourself or your family down: not at all 7. Trouble concentrating on things, such as reading the newspaper or watching television: not at all 8. Moving or speaking so slowly that other people could have noticed. Or the opposite - being so fidgety or restless that you have been moving around a lot more than usual: not at all 9. Thoughts that you would be better off or of hurting yourself in some way: not at all Total score: 0 Depression Screening Interpretation: Negative Depression Screening Done: Yes 74781 - PHQ-9 Billing: Yes Source: Developed by Drs. Gordo Anderson, Rosalinda Castellanos, Omar Pitt and colleagues, with an educational danny from [employer]. Thrive Questionnaire Date Thrive assessed: 03/16/23 Are you currently unemployed and looking for a job?: No AUDIT C Alcohol Use Questionnaire (AUDIT-C) 1. How often do you have a drink containing alcohol?: 2-4 times a month 2. How many drinks containing alcohol do you have on a typical day when you are drinking?: 1 or 2 Total Score: 2 Score Reviewed/Action Taken: Yes DEEDEE-7 AMB Questionnaire DEEDEE-7 Date DEEDEE - 7 assessed: 03/16/23 Source: Developed by Drs. Gordo Anderson, Rosalinda Castellanos, Omar Pitt and colleagues, with an educational danny from [employer]. Review of Systems Const Denies chills, Denies headache(s) and Denies weight loss ENT Denies headache(s) Card Denies chest pain, Denies syncope, Denies irregular heart rhythm and Denies dyspnea Resp Denies chest congestion, Denies cough and Denies dyspnea GI Denies abdominal pain, Denies change in stool character, Denies nausea and Denies vomiting Musc Denies deformity and Denies joint swelling Neuro Denies syncope and Denies headache(s) Physical exam (Primary Care) Vital Signs: Last Vital Signs Pulse 58 11/26/23 11:35 BP 128/70 11/26/23 11:35 Pulse Ox 98 11/26/23 11:35 Oxygen Delivery Method Room Air 11/26/23 11:35 BMI result Body Mass Index 26.9 Tobacco/Smoking Status: Tobacco use Status Tobacco use date assessed 03/16/23 11/26/23 11:28 Patient Tobacco Use Status Never used Tobacco 11/26/23 11:28 Tobacco use type Cigarette 11/26/23 11:37 e-Cigarette/Vaping Use Never Used 11/26/23 11:28 PHQ-9: PHQ-9 Score PHQ-9: Total score 0 11/26/23 11:37 Depression Screening Interpretation: Negative Thrive Assessment: Date of Thrive Assessment Date Thrive assessed 03/16/23 11/26/23 11:28 Const General: cooperative, comfortable, no acute distress and alert Neck Neck: Yes no lymphadenopathy Thyroid: Thyroid normal Resp Effort & Inspection: normal respiratory effort Auscultation: clear to auscultation bilaterally Percussion: percussion normal Cardio Jugular venous distension: no JVD Palpation: normal PMI Rate: regular rate Rhythm: regular rhythm Heart sounds: S1 normal heart sound present and S2 normal heart sound present GI Inspection: Yes normal to inspection Palpation (GI): No hepatosplenomegaly present Skin General skin exam: no rashes or lesions noted Extrem General: Yes no clubbing, cyanosis or edema Assessment and Plan Assessment & Plan (1) Hypertension: Code(s): I10 - Essential (primary) hypertension Plan: stable; same rx Coding Level of Care Code Est Pt Level 3 (65074) Diagnoses Hypertension I10
[2023-11-26 11:35] VITALS: BP 128/70; PULSE 58; O2SAT 98; BMI 26.9
== END 2023-11-26 11:45 | disposition home or self-care (01) ==
PROVIDERS: PCP Internal Medicine; Visit Provider Internal Medicine
DX: I10 Essential (primary) hypertension (principal)

== ENCOUNTER → 2023-11-26 11:25 | Outpatient (BNVA) | payer MEDICARE, SELFPAY | PROVIDERS: PCP Internal Medicine; Visit Provider Internal Medicine | DX: I10 Essential (primary) hypertension (principal) | CPT/HCPCS: 99212 ==

== ENCOUNTER 2024-03-04 10:13 | Outpatient (REF) | payer MEDICARE, SELFPAY ==
[2024-03-04 11:44] LABS: Prostate Specific Antigen 3.89 ng/mL (<0.05-4.0)
== END 2024-03-04 10:14 | disposition home or self-care (01) ==
LOC: HO.LAB 10:13
PROVIDERS: PCP Internal Medicine; Visit Provider Urology
DX: N40.0 Benign prostatic hyperplasia without lower urinary tract symptoms (principal); Z12.5 Encounter for screening for malignant neoplasm of prostate
CPT/HCPCS: 36415; 84153

== ENCOUNTER 2024-03-14 10:51 | Outpatient (REF) | payer MEDICARE, SELFPAY ==
--- NOTE | ~2024-03-14 | US_ITS ---
EXAMINATION: US PELVIS LIMITED (BLADDER) CLINICAL INFORMATION: Poor urinary stream. COMPARISON: None available. TECHNIQUE: Real-time imaging of the bladder. FINDINGS: BLADDER: Well distended and normal. No wall thickening or mass. Bilateral ureteral jets are demonstrated. Prevoid bladder volume is 427 mL. Postvoid bladder volume is 38 mL. Estimated prostate volume is 25 mL, normal. There are central calcifications present. US/US bladder IMPRESSION: 1. Normal urinary bladder. Estimated postvoid residual is 38 mL. 2. Normal size prostate, with central calcifications present. These are nonspecific. Electronically signed by: Yury Arora MD 03/15/2024 02:41 PM [facility] [place]
== END 2024-03-14 10:52 | disposition home or self-care (01) ==
LOC: HO.US 10:51
PROVIDERS: PCP Internal Medicine; Visit Provider Urology
DX: N40.0 Benign prostatic hyperplasia without lower urinary tract symptoms (principal); R39.12 Poor urinary stream
CPT/HCPCS: 76857

== ENCOUNTER → 2024-03-14 10:53 | Outpatient (BNV) | payer MEDICARE, SELFPAY | PROVIDERS: PCP Internal Medicine; Visit Provider Radiology Diagnostic Radiology | DX: N39.9 Disorder of urinary system, unspecified (principal) | CPT/HCPCS: 76857 ==

== ENCOUNTER 2024-03-21 11:28 | Outpatient (AMB) | payer MEDICARE, SELFPAY ==
[2024-03-21 11:33] VITALS: BP 128/62; PULSE 61; TEMP 35.9; O2SAT 100; BMI 25.2
--- NOTE | 2024-03-21 11:33 | A.OFFPC_ITS ---
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 Required: No Accompanied by: Spouse Allergies No Known Allergies Allergy (Verified 03/21/24 11:42) Medication List - Last Reconciled 03/21/24 by Jak Aranda MD atenolol 100 mg PO DAILY clotrimazole-betamethasone 1-0.05 % 1 appl topical BID 2 weeks doxazosin 4 mg PO BEDTIME 90 days finasteride 5 mg PO DAILY 90 days fluoxetine 20 mg PO QAM triamterene-hydrochlorothiazid 75-50 mg 1 tab PO DAILY Tobacco use date assessed: 03/21/24 Fall risk assessment: No Falls in past year Last assessed Fall Risk: 03/21/24 Dental Screening Dental Screen Date: 03/21/24 Did you have a dental visit in the last 12 months?: Yes Did you have a dental problem in the last 6 months where you did not have access to dental care?: No Was dental information given to patient?: Patient has dentist HPI 3 month f/u HPI Details HTN on Rx; doing well and compliant [facility] Medical History Screening for prostate cancer Screening for hyperlipidemia Screening for diabetes mellitus Skin lesion Hypertension Surgical History History of colonoscopy History of right knee surgery History of left knee surgery Family History Father Stroke Mother Breast cancer Social History Housing: House Alcohol intake: current Alcohol intake frequency: a few times a month Alcohol type: beer Patient Tobacco Use Status: Never used Tobacco Tobacco use type: Cigarette e-Cigarette/Vaping Use: Never Used Second Hand Smoke Exposure: No service: No Current occupational status: retired Cognitive needs: No Hearing needs: No Vision needs: No Questionnaire PHQ-9 Over the last 2 weeks, how often have you been bothered by any of the following problems? 1. Little interest or pleasure in doing things: not at all 2. Feeling down, depressed, or hopeless: not at all 3. Trouble falling or staying asleep, or sleeping too much: not at all 4. Feeling tired or having little energy: not at all 5. Poor appetite or overeating: not at all 6. Feeling bad about yourself - or that you are a failure or have let yourself o r your family down: not at all 7. Trouble concentrating on things, such as reading the newspaper or watching television: not at all 8. Moving or speaking so slowly that other people could have noticed. Or the opposite - being so fidgety or restless that you have been moving around a lot more than usual: not at all 9. Thoughts that you would be better off or of hurting yourself in some way: not at all Total score: 0 Depression Screening Interpretation: Negative Depression Screening Done: Yes 84240 - PHQ-9 Billing: Yes Source: Developed by Drs. Gordo Anderson, Rosalinda Castellanos, Omar mcfarland nd colleagues, with an educational danny from [employer]. Thrive Questionnaire Date Thrive assessed: 03/21/24 I am a: Patient What is your living situation today?: I have a steady place to live Within the past 12 months, did the food you bought not last and you didn't have the money to get more?: Never true Within the past 12 months, did you worry whether your food would run out before you got money to buy more?: Never true Do you have trouble paying for medicines?: No Do you have trouble getting transportation to medical appointments?: No Do you have trouble paying your heating and electricity bill?: No Do you have trouble taking care of your child, family member or friend?: No Do you have trouble with day-to-day activities such as bathing, preparing meals, shopping, managing finances, etc.?: No Are you currently unemployed and looking for a job?: No Are you interested in more education?: No Please select the resources that you would like help with: None Currently or been in a relationship where the following occur: No concerns reported THRIVE Score: 0 AUDIT C Alcohol Use Questionnaire (AUDIT-C) 1. How often do you have a drink containing alcohol?: Monthly or less 2. How many drinks containing alcohol do you have on a typical day when you are drinking?: 1 or 2 3. How often do you have six or more drinks on one occasion?: Never Total Score: 1 DEEDEE-7 AMB Questionnaire DEEDEE-7 Date DEEDEE - 7 assessed: 03/21/24 Feeling nervous, anxious, or on edge: 0 = Not at all Not being able to stop or control worryin = Not at all Worrying too much about different things: 0 = Not at all Trouble relaxin = Not at all Being so restless that it is hard to sit still: 0 = Not at all Becoming easily annoyed or irritable: 0 = Not at all Feeling afraid as if something awful might happen: 0 = Not at all Total DEEDEE-7 score (0-4 normal; 5-9 mild; 10-14 moderate; 15-21 severe): 0 Source: Developed by Drs. Gordo Anderson, Rosalinda Castellanos, Omar Pitt and colleagues, with an educational danny from [employer]. DEEDEE-7 Assessment Billing DEEDEE-7 Assessment Tool: DEEDEE-7 Assessment 32577 Review of Systems Const Denies chills, Denies headache(s) and Denies weight loss ENT Denies headache(s) Card Denies chest pain, Denies syncope, Denies irregular heart rhythm and Denies dyspnea Resp Denies chest congestion, Denies cough and Denies dyspnea GI Denies abdominal pain, Denies change in stool character, Denies nausea and Denies vomiting Musc Denies deformity and Denies joint swelling Neuro Denies syncope and Denies headache(s) Physical exam (Primary Care) Vital Signs: Last Vital Signs Temp 96.7 F L 03/21/24 11:33 Pulse 61 03/21/24 11:33 BP 128/62 03/21/24 11:33 Pulse Ox 100 03/21/24 11:33 Oxygen Delivery Method Room Air 03/21/24 11:33 BMI result Body Mass Index 25.2 Tobacco/Smoking Status: Tobacco use Status Tobacco use date assessed 03/21/24 03/21/24 11:42 Patient Tobacco Use Status Never used Tobacco 03/21/24 11:34 Tobacco use type Cigarette 03/21/24 11:34 e-Cigarette/Vaping Use Never Used 03/21/24 11:34 PHQ-9: PHQ-9 Score PHQ-9: Total score 0 03/21/24 11:42 Depression Screening Interpretation: Negative Thrive Assessment: Date of Thrive Assessment Date Thrive assessed 03/21/24 03/21/24 11:42 Currently or been in a relationship where the following occur: No concerns reported Const General: cooperative, comfortable, no acute distress and alert Neck Neck: Yes no lymphadenopathy Thyroid: Thyroid normal Resp Effort & Inspection: normal respiratory effort Auscultation: clear to auscultation bilaterally Percussion: percussion normal Cardio Jugular venous distension: no JVD Palpation: normal PMI Rate: regular rate Rhythm: regular rhythm Heart sounds: S1 normal heart sound present and S2 normal heart sound present GI Inspection: Yes normal to inspection Palpation (GI): No hepatosplenomegaly present Skin General skin exam: no rashes or lesions noted Extrem General: Yes no clubbing, cyanosis or edema Coding Level of Care Code Est Pt Level 3 (53932) Diagnoses Hypertension I10 Additional Codes DEEDEE-7 Assessment Billing - DEEDEE-7 Assessment Tool: DEEDEE-7 Assessment 88022 ([id number]) PHQ-9 - 88375 - PHQ-9 Billing: Yes ([id number]) Assessment & Plan Assessment & Plan (1) Hypertension: Code(s): I10 - Essential (primary) hypertension Category: Medical Plan: stable; same rx
== END 2024-03-21 11:56 | disposition home or self-care (01) ==
PROVIDERS: PCP Internal Medicine; Visit Provider Internal Medicine
DX: I10 Essential (primary) hypertension (principal)

== ENCOUNTER → 2024-03-21 11:28 | Outpatient (BNVA) | payer MEDICARE, SELFPAY | PROVIDERS: PCP Internal Medicine; Visit Provider Internal Medicine | DX: I10 Essential (primary) hypertension (principal) | CPT/HCPCS: 96127; 99212 ==

== ENCOUNTER → 2024-03-25 08:22 | Outpatient (BNVA) | payer MEDICARE, SELFPAY | PROVIDERS: PCP Internal Medicine; Visit Provider Urology | DX: R97.20 Elevated prostate specific antigen [PSA] (principal); N40.1 Benign prostatic hyperplasia with lower urinary tract symptoms; R39.12 Poor urinary stream | CPT/HCPCS: 81003; 99212 ==

== ENCOUNTER → 2024-04-15 08:17 | Outpatient (BNV) | payer MEDICARE, SELFPAY | PROVIDERS: PCP Internal Medicine; Visit Provider Radiology Diagnostic Radiology | DX: C61 Malignant neoplasm of prostate (principal) | CPT/HCPCS: 72197 ==

== ENCOUNTER 2024-04-15 08:31 | Outpatient (REF) | payer MEDICARE, SELFPAY ==
--- NOTE | ~2024-04-15 | MR_ITS ---
EXAMINATION: MR PROSTATE WITHOUT THEN WITH IV CONTRAST HISTORY: R97.20 - Elevated prostate specific antigen [PSA] TECHNIQUE: 1.5T body coil survey of the pelvis was performed. Phase array coil imaging of the prostate was performed in multiplanar high resolution axial, coronal, sagittal fast spin echo T2 and axial T1 weighted imaging sequences. Axial diffusion imaging at intermediate and high field performed with ADC mapping. Next, 9 mL Gadavist was given by intravenous infusion, and dynamic axial imaging performed. COMPARISON: There are no prior studies for comparison. CLINICAL DATA: Most recent PSA: 3.89 ng/mL on 03/04/2024 PSA Density: 0.08 ng/mL squared Prostate Biopsy: None reported FINDINGS: Prostate size: 4.2 x 3.4 x 6.2 cm. Calculated prostate volume is 46.0 mL. Hemorrhage: None. Transitional Zone: There is moderate heterogeneous nodular hypertrophy of the transitional zone. Peripheral Zone: There is an area of interest in the lateral aspect of the right peripheral zone in the mid gland (series 7, images 20-21) measuring 9.5 mm as described below: Lesion #1: DWI PI-RADS v2.1 score: 4 T2 PI-RADS v2.1 score: 4 DCE PI-RADS v2.1 score: + Overall PI-RADS v2.1 score: 4 Capsular contact: yes Extracapsular extension: none Seminal vesicle invasion: none Neurovascular bundle involvement: none Seminal Vesicles/Ejaculatory Ducts: Symmetric and normal in signal and caliber. Pelvic Lymph Nodes: No obturator or internal iliac lymph nodes meeting size criteria for adenopathy. Marrow Signal: Normal marrow signal and enhancement without focal lesion identified. MR/MR Prostate wo/w con IMPRESSION: Focus of abnormal signal intensity in the right peripheral zone in the mid gland suspicious for clinically significant prostate carcinoma. PI-RADS 4: High (clinically significant cancer is likely to be present) PI-RADS Assessment Categories PI-RADS 1: Very low (clinically significant cancer is highly unlikely to be present) PI-RADS 2: Low (clinically significant cancer is unlikely to be present) PI-RADS 3: Intermediate (the presence of clinically significant cancer is equivocal) PI-RADS 4: High (clinically significant cancer is likely to be present) PI-RADS 5: Very high (clinically significant cancer is highly likely to be present) [employer]. MR Prostate Imaging Reporting and Data System version 2.1. [email or web address] Electronically signed by: Gordo Giordano MD 04/15/2024 10:38 AM [facility]
[2024-04-15] MEDS: gadobutroL 10 ML VIAL IVPUSH (09:50)
== END 2024-04-15 08:32 | disposition home or self-care (01) ==
LOC: HO.MRI 08:31
PROVIDERS: PCP Internal Medicine; Visit Provider Urology
DX: R97.20 Elevated prostate specific antigen [PSA] (principal)
CPT/HCPCS: 72197; A9585

== ENCOUNTER 2024-04-22 08:34 | Outpatient (AMB) | payer MEDICARE, SELFPAY ==
--- NOTE | 2024-04-22 08:34 | MHC.OFFVIS ---
Intake Visit Reasons: 4W MRI(Set) Intake Note: Pt presents to the office today for a 4 week MRI follow up. Allergies No Known Allergies Allergy (Verified 04/22/24 08:34) HPI Comments Details: Marc is a pleasant male. He is a patient of Dr. Tristan. 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 Like to move ahead with prostate biopsy Lower urinary tract symptoms Initial combination therapy with finasteride and doxazosin Has reduced to single therapy Elevated PSA Slowly rising PSA PSA - 06/20 4.8, 07/21 5.9, 03/24 2.9, 09/21 2.5, 08/23 3.6, 03/26 3.9 Bladder ultrasound prostate 25 cc with calcifications Current symptoms with mild weakness of stream, feeling of relatively good emptying SHEILA 2+ Continue finasteride PFSH Medical History Screening for prostate cancer Screening for hyperlipidemia Screening for diabetes mellitus Skin lesion Hypertension Surgical History History of colonoscopy History of right knee surgery History of left knee surgery Family History Father Stroke Mother Breast cancer Social History Housing: House Alcohol intake: current Alcohol intake frequency: a few times a month Alcohol type: beer Patient Tobacco Use Status: Never used Tobacco Tobacco use type: Cigarette e-Cigarette/Vaping Use: Never Used Second Hand Smoke Exposure: No service: No Current occupational status: retired Cognitive needs: No Hearing needs: No Vision needs: No Review of Systems Const All systems reviewed & are unremarkable except as noted in HPI and below Reports no additional complaints Resp Reports no additional complaints GI Reports no additional complaints Reports as per HPI Musc Reports no additional complaints Physical Exam Telemedicine evaluation Appropriate responses Regular breathing rate and rhythm HEENT Head: Yes normal to inspection Ears: hearing grossly normal bilaterally Eyes General: appearance normal, both eyes and all related structures Neck Neck: Yes normal visual inspection Chest Chest palpation & inspection: normal inspection of the chest Resp Effort & Inspection: normal respiratory effort and able to speak in complete sentences Telehealth Telehealth Telehealth Platform: Property Place Location of provider rendering services: practice address Location of patient: address on file Patient Identification confirmed using: Name, : Yes Telehealth method: video Patient verbally consented to treatment: Yes Patient verbally consented to billing insurance company: Yes Patient informed of any privacy concerns related to visit: Yes Minutes spent on Phone/Video with Pt.: 15 Assessment & Plan Assessment & Plan (1) Elevated PSA: Code(s): R97.20 - Elevated prostate specific antigen [PSA] Category: Medical Plan Risks, benefits and alternatives to therapy were discussed. These include but are not limited to infection, bleeding, damage to local organs and tissues, need for further interventions. Anesthetic risks regarding cardiac arrhythmia, blood clots, and potential mortality were discussed. The patient understands the typical recovery time and the outpatient nature of the procedure. After consideration of these risks the patient gives full informed consent and they wish to move ahead with the procedure. Prostate biopsy Medications: New levofloxacin take 1 tablet day before procedure, 1 tablet day of procedure and 1 tablet day after procedure 500 mg PO DAILY 3 tabs 0RF 3 days R97.20 - Elevated prostate specific antigen [PSA] Patient Instructions: This note is constructed using voice recognition software. While every effort has been made to ensure accuracy bush and vine fruit crop farmer errors may have been included. Imaging studies, laboratory and physical exam results were discussed and reviewed in detail. No major barriers to patient understanding were identified. An opportunity to ask questions regarding the treatment plan was provided. All questions were answered. The patient expressed understanding and agreement with the above treatment plan. The patient is aware they should contact our office by phone for worsening of their current condition or the appearance of new urologic symptoms. Compliance is encouraged with any medications and followup testing that is ordered. It is a privilege to participate in the urologic care of your patient. If you have any questions or concerns regarding treatment for the above conditions, or other urologic issues, please do not hesitate to contact me. The office telephone contact is [phone]. Sincerely, Dr Dinh Birmingham MD, [facility] - Urology Compassionate Specialist Care for the Genitourinary System Coding Level of Care Code Tele Est Pt Level 4 (57907) Diagnoses Elevated PSA R97.20
== END 2024-04-22 10:24 | disposition home or self-care (01) ==
LOC: HO.HUSH 08:34
PROVIDERS: PCP Internal Medicine; Visit Provider Urology
DX: R97.20 Elevated prostate specific antigen [PSA] (principal)
CPT/HCPCS: 99214

== ENCOUNTER 2024-05-03 07:33 | Outpatient (REF) | payer MEDICARE, SELFPAY ==
[2024-05-03] MEDS: Lidocaine HCl 1 % MPF 30 ML VIAL SUBCUT (08:32)
--- NOTE | 2024-05-03 12:48 | W.PM.OPN ---
Operative Note Operative Note Date of Service: 05/03/24 Narrative: Preoperative diagnosis: Elevated PSA Postoperative diagnosis: Elevated PSA Procedure: 1. transrectal ultrasound measurement of prostate 2. transrectal ultrasound-guided pudendal nerve block 3. transrectal ultrasound-guided prostate biopsy 12 core Surgeon: Dr. Dinh Birmingham Anesthetic: 10cc 1% lidocaine Indications for procedure: Elevated PSA 5.8 Counselling: Technical aspects, risks and benefits of proposed procedure were discussed in full. All questions have been answered, written consent has been obtained and patient agrees to proceed. Procedure: The patient was brought into the procedure area and placed in a left lateral decubitus position. Patient identity confirmed. Perioperative antibiotics confirmed. Safety pause time out performed. SHEILA was performed to dilate rectal sphincter Iodine 10cc with 60 cc gel was placed per rectum to reduce infection risk using a catheter tip syringe. 8 Hz Jesus rectal end-fire ultrasound probe was placed transrectally without difficulty. The prostate was visualized. Seminal vesicles were normal. Prostate margins were clearly demarcated. Bladder was seen superiorly. No cystic structures were noted Yes calcifications were noted at the surgical margin The prostate was otherwise homogeneous in nature The prostate was measured in 3 dimensions Prostatic Width: 4.2 cm Prostatic Height: 3.0 cm Urethral Length: 4.1 cm Total volume equals : 30 ml An ultrasound-guided pudendal nerve block was performed using a 22 gauge spinal needle in the sagittal plane. 4 cc of 1% lidocaine placed at the junction of each seminal vesicle and 2 cc placed at the apex of the prostate. A 12 core biopsy was performed with 6 cores each side using an 18 gauge prostate biopsy gun. Two cores each were taken at the prostate apex, mid and base on each side. Cores were spaced between lateral and medial aspects. Each core was examined as placed on specimen foam as part of senior data quality analyst to ensure a minimum 1 cm of length and minimal discontinuity. He tolerated the procedure well with minimal rectal bleeding. Blood pressure remained stable following procedure. He was able to ambulate to bathroom after 5 minutes. Printed instructions regarding antibiotic use and common adverse events from the procedure such as low-grade temperature, potential infection and bleeding were given. He understands to call the office or go to an emergency room should any of these events arise. Pathology: 12 core prostate biopsy. CPT code 40717: Transrectal ultrasound; this is a diagnostic test for evaluation of the prostate and surrounding structures, looking for abnormalities or suspicious areas worrisome for cancer CPT code 58422: Biopsy, prostate; needle or punch, single or multiple, any approach CPT code 40316: Ultrasonic guidance for needle placement (eg, biopsy, aspiration, injection, localization device), imaging supervision and interpretation
== END 2024-05-03 07:34 | disposition home or self-care (01) ==
LOC: HO.US 07:33
PROVIDERS: PCP Internal Medicine; Visit Provider Urology
DX: R97.20 Elevated prostate specific antigen [PSA] (principal)
CPT/HCPCS: 55700; 76942; 88305; J2003

== ENCOUNTER → 2024-05-03 07:33 | Outpatient (BNV) | payer MEDICARE, SELFPAY | PROVIDERS: PCP Internal Medicine; Visit Provider Urology | DX: R97.20 Elevated prostate specific antigen [PSA] (principal) | CPT/HCPCS: 55700; 76872; 76942 ==

== ENCOUNTER 2024-06-01 09:51 | Outpatient (AMB) | payer MEDICARE, SELFPAY ==
--- NOTE | 2024-06-01 09:51 | A.OFFVIS_ITS ---
Intake Visit Reasons: Prostate biopsy results Intake Note: Patient is present for PROSTATE BIOPSY RESULTS Urology Medication:FINASTERIDE Antibiotic Allergy:NONE Blood Thinner:NONE Event Attendant Required: No Allergies No Known Allergies Allergy (Verified 06/01/24 09:52) HPI Comments Details: Marc is a pleasant male. He is a patient of Dr. Tristan. He seen for the following urologic conditions - elevated PSA - lower urinary tract symptoms Telemedicine Evaluation 15 min Consultation [place] Video Discussed results Low core number Check polaris Discussion in office regarding treatment including cryotherapy, active surveillance, external beam radiation Prostate Cancer low volume, grade group 2 MRI 50 g prostate PT1c Histologic type: Adenocarcinoma, acinar type Histologic grade:Winfield score: 6 (3+3) (right mid lateral 50% and medial 85%, and right apex lateral 70%)7 (3+4) (right apex medial 15%) Grade group: 2 and 1 Tumor quantitation: Number cores positive: 4 Total number of cores: 12 % of tissue involved: 19% Periprostatic fat inv.: Not identified Seminal vesicle inv.: Not identified Perineural inv.: Present Lymphatic and/or vascular invasion: Not identified 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 Lower urinary tract symptoms Initial combination therapy with finasteride and doxazosin Has reduced to single therapy Elevated PSA Slowly rising PSA PSA - 06/20 4.8, 07/21 5.9, 03/24 2.9, 09/21 2.5, 08/23 3.6, 03/26 3.9 Bladder ultrasound prostate 25 cc with calcifications Current symptoms with mild weakness of stream, feeling of relatively good emptying - SHEILA 2+ Prostate MRI - 50 mg prostate PI-RADS 4 - 9 mm lateral aspect of the right peripheral zone in the mid gland [facility] Medical History Screening for prostate cancer Screening for hyperlipidemia Screening for diabetes mellitus Skin lesion Hypertension Surgical History History of colonoscopy History of right knee surgery History of left knee surgery Family History Father Stroke Mother Breast cancer Social History Housing: House Alcohol intake: current Alcohol intake frequency: a few times a month Alcohol type: beer Patient Tobacco Use Status: Never used Tobacco Tobacco use type: Cigarette e-Cigarette/Vaping Use: Never Used Second Hand Smoke Exposure: No service: No Current occupational status: retired Cognitive needs: No Hearing needs: No Vision needs: No Review of Systems Const All systems reviewed & are unremarkable except as noted in HPI and below Reports no additional complaints Resp Reports no additional complaints GI Reports no additional complaints Reports as per HPI Musc Reports no additional complaints Physical Exam Telemedicine evaluation Appropriate responses Regular breathing rate and rhythm HEENT Head: Yes normal to inspection Ears: hearing grossly normal bilaterally Eyes General: appearance normal, both eyes and all related structures Neck Neck: Yes normal visual inspection Chest Chest palpation & inspection: normal inspection of the chest Resp Effort & Inspection: normal respiratory effort and able to speak in complete sentences Telehealth Telehealth Location of provider rendering services: practice address Location of patient: address on file Patient Identification confirmed using: Name, : Yes Telehealth method: voice only Patient verbally consented to treatment: Yes Patient verbally consented to billing insurance company: Yes Patient informed of any privacy concerns related to visit: Yes Assessment & Plan Assessment & Plan (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 While every effort has been made to ensure accuracy certified medical transcriptionist errors may have been included. Imaging studies, laboratory and physical exam results were discussed and reviewe d in detail. No major barriers to patient understanding were identified. An opportunity to ask questions regarding the treatment plan was provided. All questions were answered. The patient expressed understanding and agreement with the above treatment plan. The patient is aware they should contact our office by phone for worsening of their current condition or the appearance of new urologic symptoms. Compliance is encouraged with any medications and followup testing that is ordered. It is a privilege to participate in the urologic care of your patient. If you have any questions or concerns regarding treatment for the above conditions, or other urologic issues, please do not hesitate to contact me. The office telephone contact is [phone]. Sincerely, Dr Dinh Birmingham MD, [facility] - Urology Compassionate Specialist Care for the Genitourinary System Coding Level of Care Code Tele Est Pt Level 4 (98221) Complex EM visit Add On G2211 Diagnoses Hormone sensitive prostate cancer C61; Z19.1
== END 2024-06-01 11:14 | disposition home or self-care (01) ==
LOC: HO.HUSH 09:51
PROVIDERS: PCP Internal Medicine; Visit Provider Urology
DX: C61 Malignant neoplasm of prostate (principal); Z19.1 Hormone sensitive malignancy status
CPT/HCPCS: 99214; G2211

== ENCOUNTER 2024-07-13 16:26 | Outpatient (AMB) | payer MEDICARE, SELFPAY ==
[2024-07-13 16:36] VITALS: BP 128/80; BMI 26.4
--- NOTE | 2024-07-13 16:36 | A.OFFPC_ITS ---
Vital Signs 07/13/24 16:36 Height 6 ft 3 in Weight 211 lb BMI 26.4 BP 128/80 Blood Pressure Location Lt brachial Position Sitting Intake Visit Reasons: Transfer Care from Dr. Aranda / Follow Up General Ii Farmworker Required: No Accompanied by: Self / Same As Patient Allergies No Known Allergies Allergy (Verified 07/13/24 16:44) Medication List - Last Reconciled 07/13/24 by Krys Kim MD atenolol 100 mg PO DAILY clotrimazole-betamethasone 1-0.05 % 1 appl topical BID 2 weeks finasteride 5 mg PO DAILY 90 days fluoxetine 20 mg PO QAM levofloxacin 500 mg PO DAILY 3 days triamterene-hydrochlorothiazid 75-50 mg 1 tab PO DAILY Tobacco use date assessed: 03/21/24 Fall risk assessment: No Falls in past year Last assessed Fall Risk: 07/13/24 Dental Screening Dental Screen Date: 07/13/24 Did you have a dental visit in the last 12 months?: Yes Did you have a dental problem in the last 6 months where you did not have access to dental care?: No Was dental information given to patient?: Patient has dentist HPI HPI Comments History of Present Illness Details The patient is a 73-year-old male presenting with follow-up concerns r egarding recent prostate biopsy results and elevated blood sugar monitoring. The prostate biopsy conducted in April revealed two questionable and one definite sample of concern, prompting consideration of robotic surgery for benign prostatic hyperplasia. Scheduled follow-up with Dr. Birmingham is planned, as well as consultation with [facility] for further management. Blood sugar levels were last assessed a year ago, showing an elevated level of 126, though the patient does not experience symptoms typically associated with hyperglycemia. His past medical history includes bilateral knee surgeries, and he is regularly prescribed atenolol, finasteride, fluoxetine, and a combination antihypertensive/diuretic. The patient comes in every four months for routine blood work and has updated immunizations, including pneumonia and Tdap vaccines. [facility] Medical History (Updated 07/13/24 @ 17:26 by Krys Kim MD) Screening for prostate cancer Screening for hyperlipidemia Screening for diabetes mellitus Skin lesion Hypertension Surgical History History of colonoscopy History of right knee surgery History of left knee surgery Family History Father Stroke Mother Breast cancer Social History Housing: House Alcohol intake: current Alcohol intake frequency: a few times a month Alcohol t ype: beer Patient Tobacco Use Status: Never used Tobacco e-Cigarette/Vaping Use: Never Used Second Hand Smoke Exposure: No service: No Current occupational status: retired Cognitive needs: No Hearing needs: No Vision needs: No Questionnaire PHQ-9 Over the last 2 weeks, how often have you been bothered by any of the following problems? 1. Little interest or pleasure in doing things: not at all 2. Feeling down, depressed, or hopeless: not at all 3. Trouble falling or staying asleep, or sleeping too much: not at all 4. Feeling tired or having little energy: several days 5. Poor appetite or overeating: not at all 6. Feeling bad about yourself - or that you are a failure or have let yourself or your family down: not at all 7. Trouble concentrating on things, such as reading the newspaper or watching television: not at all 8. Moving or speaking so slowly that other people could have noticed. Or the opposite - being so fidgety or restless that you have been moving around a lot more than usual: not at all 9. Thoughts that you would be better off or of hurting yourself in some way: not at all Total score: 1 Depression Screening Interpretation: Negative Depression Screening Done: Yes 62992 - PHQ-9 Billing: Yes Source: Developed by Drs. Gordo Anderson, Rosalinda Castellanos, Omar Pitt and colleagues, with an educational danny from [employer]. Thrive Questionnaire Date Thrive assessed: 07/06/24 I am a: Patient What is your living situation today?: I have a steady place to live Within the past 12 months, did the food you bought not last and you didn't have the money to get more?: Never true Within the past 12 months, did you worry whether your food would run out before you got money to buy more?: Never true Do you have trouble paying for medicines?: No Do you have trouble getting transportation to medical appointments?: No Do you have trouble paying your heating and electricity bill?: No Do you have trouble taking care of your child, family member or friend?: Yes Do you have trouble with day-to-day activities such as bathing, preparing meals, shopping, managing finances, etc.?: No Are you currently unemployed and looking for a job?: No Are you interested in more education?: No Please select the resources that you would like help with: None Currently or been in a relationship where the following occur: No concerns reported THRIVE Score: 0 AUDIT C Alcohol Use Questionnaire (AUDIT-C) 1. How often do you have a drink containing alcohol?: Monthly or less Total Score: 1 Score Reviewed/Action Taken: No DEEDEE-7 AMB Questionnaire DEEDEE-7 Date DEEDEE - 7 assessed: 07/13/24 Feeling nervous, anxious, or on edge: 1 = Several days Not being able to stop or control worryin = Several days Worrying too much about different things: 1 = Several days Trouble relaxin = Several days Being so restless that it is hard to sit still: 1 = Several days Becoming easily annoyed or irritable: 0 = Not at all Feeling afraid as if something awful might happen: 1 = Several days Total DEEDEE-7 score (0-4 normal; 5-9 mild; 10-14 moderate; 15-21 severe): 6 Source: Developed by Drs. Gordo Anderson, Rosalinda Castellanos, Omar Pitt and colleagues, with an educational danny from [employer]. DEEDEE-7 Assessment Billing DEEDEE-7 Assessment Tool: DEEDEE-7 Assessment 03970 Review of Systems Const All systems reviewed & are unremarkable except as noted in HPI and below Card Denies chest pain at rest, Denies chest pain with activity, Denies edema, Denies irregular heart rhythm, Denies claudication, Denies dyspnea, Denies dyspnea on exertion, Denies orthopnea, Denies paroxysmal nocturnal dyspnea and Denies slow heart rate Resp Denies cough, Denies dyspnea and Denies dyspnea on exertion GI Denies abdominal pain, Denies change in bowel habits, Denies excessive flatus, Denies nausea and Denies vomiting Physical exam (Primary Care) Vital Signs: Last Vital Signs BP 128/80 07/13/24 16:36 BMI result Body Mass Index 26.4 Tobacco/Smoking Status: Tobacco use Status Tobacco use date assessed 03/21/24 07/13/24 16:38 Patient Tobacco Use Status Never used Tobacco 07/13/24 16:38 Tobacco use type 07/13/24 16:38 e-Cigarette/Vaping Use Never Used 07/13/24 16:38 PHQ-9: PHQ-9 Score PHQ-9: Total score 1 07/13/24 16:38 Depression Screening Interpretation: Negative Thrive Assessment: Date of Thrive Assessment Date Thrive assessed 07/06/24 07/13/24 16:38 Currently or been in a relationship where the following occur: No concerns reported Resp Effort & Inspection: normal respiratory effort Auscultation: clear to auscultation bilaterally Cardio Jugular venous distension: no JVD Rate: regular rate Rhythm: regular rhythm Heart sounds: S1 normal heart sound present and S2 normal heart sound present Extrem General: Yes full ROM Coding Level of Care Code Est Pt Level 4 (17967) Complex EM visit Add On G2211 Diagnoses Hormone sensitive prostate cancer C61; Z19.1 Primary hypertension I10 Hypertension type: primary hypertension Anxiety F41.9 Impaired glucose tolerance R73.02 Additional Codes PHQ-9 - 75302 - PHQ-9 Billing: Yes ([id number]) DEEDEE-7 Assessment Billing - DEEDEE-7 Assessment Tool: DEEDEE-7 Assessment 41610 ([id number]) Time Spent (min) 24 Assessment & Plan Assessment & Plan (1) Hormone sensitive prostate cancer: Code(s): C61 - Malignant neoplasm of prostate; Z19.1 - Hormone sensitive malignancy status Category: Medical (2) Hypertension: Code(s): I10 - Essential (primary) hypertension Category: Medical Qualifiers: Hypertension type: primary hypertension Qualified Code(s): I10 - Essential (primary) hypertension (3) Anxiety: Code(s): F41.9 - Anxiety disorder, unspecified Category: Medical (4) Impaired glucose tolerance: Code(s): R73.02 - Impaired glucose tolerance (oral) Category: Medical Plan The patient will follow up with Dr. Birmingham regarding prostate issues with potential robotic surgery considered. Blood sugar levels will be monitored every four months, with attention to fasting status before testing. Continued adherence to prescribed antihypertensive and lipid-lowering treatments is advised. The patient may obtain the Shingrix vaccination at a pharmacy location. Routine follow-up blood work will be adjusted to align with the patient's visit schedule. Patient was informed and verbally consented to the use of an ambient scribe for clinic note documentation during this visit. I discussed the nature and results of the prostate biopsy with the patient. We reviewed the treatment options, including the pros and cons of potential robotic surgery, with a follow-up planned with Dr. Birmingham to further this discussion. I advised the patient on the importance of fasting before blood sugar testing to ensure accuracy and the need to monitor glucometric results over time. We reviewed his current medication regimen and he is instructed to continue his antihypertensive and antidepressant therapies as prescribed. There was an emphasis on the importance of keeping up with vaccinations and addressing any changes in clinical status promptly. Short-term follow-up will align with upcoming blood work and scheduled medical appointments. Orders: Orders Lipid Panel 4 Months E78.5 - Hyperlipidemia, unspecified Comprehensive [place]. Panel Fast 4 Months I10 - Essential (primary) hypertension Patient Instructions: - Continue taking current medications as prescribed. - Monitor blood sugar every four months; ensure fasting before testing. - Schedule follow-up appointment with Dr. Birmingham for prostate management discussion. - Consider obtaining Shingrix vaccination from a pharmacy. - Maintain health through diet and moderate alcohol consumption.
== END 2024-07-13 17:02 | disposition home or self-care (01) ==
LOC: HO.HMCH 16:27
PROVIDERS: PCP Internal Medicine; Visit Provider Internal Medicine
DX: C61 Malignant neoplasm of prostate (principal); Z19.1 Hormone sensitive malignancy status; I10 Essential (primary) hypertension; F41.9 Anxiety disorder, unspecified; R73.02 Impaired glucose tolerance (oral)

== ENCOUNTER → 2024-07-13 16:26 | Outpatient (BNVA) | payer MEDICARE, SELFPAY | PROVIDERS: PCP Internal Medicine; Visit Provider Internal Medicine | DX: C61 Malignant neoplasm of prostate (principal); Z19.1 Hormone sensitive malignancy status; I10 Essential (primary) hypertension; F41.9 Anxiety disorder, unspecified; R73.02 Impaired glucose tolerance (oral) | CPT/HCPCS: 96127; 99212 ==

== ENCOUNTER 2024-07-15 08:56 | Outpatient (AMB) | payer MEDICARE, SELFPAY ==
--- NOTE | 2024-07-15 08:58 | MHC.OFFVIS ---
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 He is a patient of Dr. Tristan. He seen for the following urologic conditions - elevated PSA - lower urinary tract symptoms Prolaris follow-up Meets active surveillance criteria Continue interval PSA Discussion regarding treatment including cryotherapy, active surveillance, external beam radiation Prostate Cancer low volume, grade group 2 - 04/26 Prolaris 06/24 - low-salt cycle score, active surveillance recommended Switch finasteride to every other month MRI 50 g prostate PI-RADS 4 - 9 mm lateral aspect of the right peripheral zone in the mid gland PT1c Histologic type: Adenocarcinoma, acinar type Histologic grade:Syeda score: 6 (3+3) (right mid lateral 50% and medial 85%, and right apex lateral 70%)7 (3+4) (right apex medial 15%) Grade group: 2 and 1 Tumor quantitation: Number cores positive: 4 Total number of cores: 12 % of tissue involved: 19% Periprostatic fat inv.: Not identified Seminal vesicle inv.: Not identified Perineural inv.: Present Lymphatic and/or vascular invasion: Not identified 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 Lower urinary tract symptoms Initial combination therapy with finasteride and doxazosin Has reduced to single therapy Elevated PSA Slowly rising PSA PSA - 06/20 4.8, 07/21 5.9, 03/24 2.9, 09/21 2.5, 08/23 3.6, 03/26 3.9 Bladder ultrasound prostate 25 cc with calcifications Current symptoms with mild weakness of stream, feeling of relatively good emptying - SHEILA 2+ PFSH Medical History Screening for prostate cancer Screening for hyperlipidemia Screening for diabetes mellitus Skin lesion Hypertension Surgical History History of colonoscopy History of right knee surgery History of left knee surgery Family History Father Stroke Mother Breast cancer Social History Housing: House Alcohol intake: current Alcohol intake frequency: a few times a month Alcohol type: beer Patient Tobacco Use Status: Never used Tobacco e-Cigarette/Vaping Use: Never Used Second Hand Smoke Exposure: No service: No Current occupational status: retired Cognitive needs: No Hearing needs: No Vision needs: No Review of Systems Const Denies chills and Denies fever(s) Card Reports no additional complaints and Denies syncope Resp Denies cough GI Denies abdominal pain and Denies heartburn Reports as per HPI and Denies change in libido Neuro Denies syncope Psych Denies change in libido Endo Denies change in libido Physical Exam Const General: cooperative, healthy appearing, comfortable and no acute distress Orientation/consciousness: patient oriented x3 HEENT Face and sinus: Yes normal facial exam Mouth: moist mucous membranes Neck Neck: Yes normal visual inspection, Yes full ROM and Yes trachea midline Chest Chest palpation & inspection: normal inspection of the chest Resp Effort & Inspection: normal respiratory effort, able to speak in complete sentences and no respiratory distress GI Inspection: Yes normal to inspection Back/Spine/Pelvis Cervical Spine: normal cervical lordosis Thoracic/Lumbar Spine: thoracic and lumbar spine normal to inspection Skin General skin exam: no rashes or lesions noted Neuro General: patient oriented x3, gait normal, tone normal and moves all extremities Extrem General: Yes normal to inspection and Yes capillary refill normal Assessment & Plan Assessment & Plan (1) BPH (benign prostatic hyperplasia): Code(s): N40.0 - Benign prostatic hyperplasia without lower urinary tract symptoms Category: Medical (2) Hormone sensitive prostate cancer: Code(s): C61 - Malignant neoplasm of prostate; Z19.1 - Hormone sensitive malignancy status Category: Medical Plan 4 month follow-up PSA Orders: Orders Prostate Specific Antigen 4 Months C61 - Malignant neoplasm of prostate, Z19.1 - Hormone sensitive malignancy status Patient Instructions: This note is constructed using voice recognition software. While every effort has been made to ensure accuracy provider network analyst errors may have been included. Imaging studies, laboratory and physical exam results were discussed and reviewed in detail. No major barriers to patient understanding were identified. An opportunity to ask questions regarding the treatment plan was provided. All questions were answered. The patient expressed understanding and agreement with the above treatment plan. The patient is aware they should contact our office by phone for worsening of their current condition or the appearance of new urologic symptoms. Compliance is encouraged with any medications and followup testing that is ordered. It is a privilege to participate in the urologic care of your patient. If you have any questions or concerns regarding treatment for the above conditions, or other urologic issues, please do not hesitate to contact me. The office telephone contact is [phone]. Sincerely, Dr Dinh Birmingham MD, [facility] - Urology Compassionate Specialist Care for the Genitourinary System Coding Level of Care Code Est Pt Level 4 (50843) Complex EM visit Add On G2211 Diagnoses BPH (benign prostatic hyperplasia) N40.0 Hormone sensitive prostate cancer C61; Z19.1
== END 2024-07-15 09:54 | disposition home or self-care (01) ==
LOC: HO.HUSH 08:56
PROVIDERS: PCP Internal Medicine; Visit Provider Urology
DX: N40.0 Benign prostatic hyperplasia without lower urinary tract symptoms (principal); C61 Malignant neoplasm of prostate; Z19.1 Hormone sensitive malignancy status; Z13.9 Encounter for screening, unspecified
CPT/HCPCS: 99214; G2211

== ENCOUNTER → 2024-07-15 08:56 | Outpatient (BNVA) | payer MEDICARE, SELFPAY | PROVIDERS: PCP Internal Medicine; Visit Provider Urology | DX: N40.0 Benign prostatic hyperplasia without lower urinary tract symptoms (principal); C61 Malignant neoplasm of prostate; Z19.1 Hormone sensitive malignancy status | CPT/HCPCS: 81003; 99212 ==

== ENCOUNTER 2024-11-04 06:35 | Outpatient (REF) | payer MEDICARE, SELFPAY ==
--- OUTSIDE RECORDS SUMMARY | 2024-11-04 06:39 | XMS_ITS | Patient Health Record ---
Author Organization [facility] Address [address] [place] [id number] Care Team Providers Care Telemetry Technician Name Role Phone Rubén Wood Jr [phone] 1 Reason For Referral No Information Plan Of Treatment No Information
[2024-11-04 08:12] LABS: Alanine Aminotransferase 28 U/L (0-40); Albumin Level 4.5 g/dL (3.5-5.0); Alkaline Phosphatase 66 U/L (39-117); Anion Gap 13 (12-20); Aspartate Amino Transferase 30 U/L (5-37); Blood Urea Nitrogen 19 mg/dL (9-16); Calcium 9.9 mg/dL (8.4-10.2); Carbon Dioxide 25 mmol/L (22-29); Chloride 105 mmol/L (96-108); Cholesterol 173 mg/dL (<200); Estimated Glomerular Filt Rate > 60; HDL Cholesterol 38 mg/dL (>40); Potassium 3.8 mmol/L (3.3-5.1); Sodium 139 mmol/L (135-145); Total Protein 6.8 g/dL (6.5-8.0); Triglycerides 101 mg/dL (<150)
== END 2024-11-04 06:36 | disposition home or self-care (01) ==
LOC: HO.LAB 06:35
PROVIDERS: PCP Internal Medicine; Visit Provider Internal Medicine
DX: I10 Essential (primary) hypertension (principal); E78.5 Hyperlipidemia, unspecified
CPT/HCPCS: 36415; 80053; 80061

== ENCOUNTER 2024-11-14 16:20 | Outpatient (AMB) | payer MEDICARE, SELFPAY ==
[2024-11-14 16:22] VITALS: BP 130/60; PULSE 61; RESP 18; TEMP 36.1; O2SAT 97; BMI 26.5
--- NOTE | 2024-11-14 16:22 | MHC.PC.OV ---
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: No Accompanied by: Self / Same As Patient Allergies No Known Allergies Allergy (Verified 11/14/24 16:38) Medication List - Last Reconciled 11/14/24 by Krys Kim MD atenolol 100 mg PO DAILY clotrimazole-betamethasone 1-0.05 % 1 appl topical BID 2 weeks finasteride 5 mg PO DAILY 90 days fluoxetine 20 mg PO QAM levofloxacin 500 mg PO DAILY 3 days triamterene-hydrochlorothiazid 75-50 mg 1 tab PO DAILY Tobacco use date assessed: 11/14/24 Fall risk assessment: No Falls in past year Last assessed Fall Risk: 11/14/24 Dental Screening Dental Screen Date: 11/14/24 Did you have a dental visit in the last 12 months?: Yes Did you have a dental problem in the last 6 months where you did not have access to dental care?: No Was dental information given to patient?: Patient has dentist HPI HPI Comments History of Present Illness Details This is a 74-year-old male with hypertension, impaired glucose tolerance, anxiety and hormone sensitive prostate cancer that comes today for follow-up on his conditions. Blood pressure well controlled. Blood glucose has improved and he denies any polyuria, polydipsia or unintentional weight loss. Anxiety stable with SSRIs. Had a biopsy in June of this year showing prostate adenocarcinoma this is follow by Urology. Denies any acute complaints. [facility] Medical History Screening for prostate cancer Screening for hyperlipidemia Screening for diabetes mellitus Skin lesion Hypertension Surgical History History of colonoscopy History of right knee surgery History of left knee surgery Family History Father Stroke Mother Breast cancer Social History Housing: House Alcohol intake: current Alcohol intake frequency: a few times a month Alcohol type: beer Patient Tobacco Use Status: Never used Tobacco e-Cigarette/Vaping Use: Never Used Second Hand Smoke Exposure: No service: No Current occupational status: retired Cognitive needs: No Hearing needs: No Vision needs: No Questionnaire Thrive Questionnaire Date Thrive assessed: 07/06/24 I am a: Patient What is your living situation today?: I have a steady place to live Within the past 12 months, did the food you bought not last and you didn't have the money to get more?: Never true Within the past 12 months, did you worry whether your food would run out before you got money to buy more?: Never true Do you have trouble paying for medicines?: No Do you have trouble getting transportation to medical appointments?: No Do you have trouble paying your heating and electricity bill?: No Do you have trouble taking care of your child, family member or friend?: Yes Do you have trouble with day-to-day activities such as bathing, preparing meals, shopping, managing finances, etc.?: No Are you currently unemployed and looking for a job?: No Are you interested in more education?: No Please select the resources that you would like help with: None Currently or been in a relationship where the following occur: No concerns reported THRIVE Score: 0 DEEDEE-7 AMB Questionnaire DEEDEE-7 Date DEEDEE - 7 assessed: 07/13/24 Source: Developed by Drs. Gordo Anderson, Rosalinda Castellanos, Omar Pitt and colleagues, with an educational danny from [employer]. Review of Systems Const All systems reviewed & are unremarkable except as noted in HPI and below Card Denies chest pain at rest, Denies chest pain with activity, Denies edema, Denies irregular heart rhythm, Denies claudication, Denies dyspnea, Denies dyspnea on exertion, Denies orthopnea, Denies paroxysmal nocturnal dyspnea and Denies slow heart rate Resp Denies cough, Denies dyspnea and Denies dyspnea on exertion GI Denies abdominal pain, Denies change in bowel habits, Denies excessive flatus, Denies nausea and Denies vomiting Physical exam (Primary Care) Vital Signs: Last Vital Signs Temp 96.9 F 11/14/24 16:22 Pulse 61 11/14/24 16:22 Resp 18 11/14/24 16:22 BP 130/60 11/14/24 16:22 Pulse Ox 97 11/14/24 16:22 Oxygen Delivery Method Room Air 11/14/24 16:22 BMI result Body Mass Index 26.5 Tobacco/Smoking Status: Tobacco use Status Tobacco use date assessed 11/14/24 11/14/24 16:23 Patient Tobacco Use Status Never used Tobacco 11/14/24 16:23 Tobacco use type 07/13/24 17:00 e-Cigarette/Vaping Use Never Used 11/14/24 16:23 Thrive Assessment: Date of Thrive Assessment Date Thrive assessed 07/06/24 11/14/24 16:23 Currently or been in a relationship where the following occur: No concerns reported Resp Effort & Inspection: normal respiratory effort Auscultation: clear to auscultation bilaterally Cardio Jugular venous distension: no JVD Rate: regular rate Rhythm: regular rhythm Heart sounds: S1 normal heart sound present and S2 normal heart sound present Extrem General: Yes full ROM Coding Level of Care Code Est Pt Level 4 (06092) Complex EM visit Add On G2211 Diagnoses Primary hypertension I10 Hypertension type: primary hypertension Anxiety F41.9 Hormone sensitive prostate cancer C61; Z19.1 Impaired glucose tolerance R73.02 Time Spent (min) 22 Assessment & Plan Assessment & Plan (1) Hypertension: Code(s): I10 - Essential (primary) hypertension Category: Medical Qualifiers: Hypertension type: primary hypertension Qualified Code(s): I10 - Essential (primary) hypertension (2) Anxiety: Code(s): F41.9 - Anxiety disorder, unspecified Category: Medical (3) Hormone sensitive prostate cancer: Code(s): C61 - Malignant neoplasm of prostate; Z19.1 - Hormone sensitive malignancy status Category: Medical (4) Impaired glucose tolerance: Code(s): R73.02 - Impaired glucose tolerance (oral) Category: Medical Plan Continue current meds. Follow-up with Urology.
--- OUTSIDE RECORDS SUMMARY | 2024-11-14 21:26 | XMS_ITS | Patient Health Record ---
Author Organization [facility] Address [address] [place] [id number] Care Team Providers Care Hot Pond Operator Name Role Phone Rubén Wood Jr Reason For Referral No Information Plan Of Treatment No Information
== END 2024-11-14 16:58 | disposition home or self-care (01) ==
LOC: HO.HMCH 16:21
PROVIDERS: PCP Internal Medicine; Visit Provider Internal Medicine
DX: I10 Essential (primary) hypertension (principal); F41.9 Anxiety disorder, unspecified; C61 Malignant neoplasm of prostate; Z19.1 Hormone sensitive malignancy status; R73.02 Impaired glucose tolerance (oral)

== ENCOUNTER → 2024-11-14 16:20 | Outpatient (BNVA) | payer MEDICARE, SELFPAY | PROVIDERS: PCP Internal Medicine; Visit Provider Internal Medicine | DX: I10 Essential (primary) hypertension (principal); F41.9 Anxiety disorder, unspecified; R73.02 Impaired glucose tolerance (oral); C61 Malignant neoplasm of prostate; Z19.1 Hormone sensitive malignancy status | CPT/HCPCS: 99212 ==